=== PATIENT | female | born 1960 | race Caucasian/White ===

== ENCOUNTER 2016-11-24 12:56 | Outpatient (RCR) | payer MEDICAID ==
--- OUTSIDE RECORDS SUMMARY | 2016-11-01 12:36 | XMS REPORT | Continuity of Care Document ---
Author Author [facility] Organization [facility] Address Unknown Phone Unavailable Care Team Providers Care Security Systems Integrator Name Role Phone [facility] [place] PCP [phone] Source Comments Some departments are not documenting in the electronic medical record. If you do not see the information that you expected, contact Release of Information in the Health Information Management department at [phone] for further assistance in locating additional records.[facility] Active Allergies and Adverse Reactions No Known Allergies Current Medications Prescription Sig. Disp. Refills Start End Date Status Date ARIPiprazole (ABILIFY) 15 Take 15 mg by mouth 11/26/19 Active mg tablet daily. 16 atorvastatin (LIPITOR) 40 Take 40 mg by mouth at 12/10/19 Active mg tablet bedtime daily. 16 clonazePAM (KLONOPIN) 1 Take 1 mg by mouth three 12/18/19 Active mg tablet times daily. 16 furosemide (LASIX) 40 mg Take 40 mg by mouth 12/03/19 Active tablet daily. 16 glipiZIDE (GLUCOTROL) 5 Take 5 mg by mouth daily. 12/15/19 Active mg tablet 16 HYDROcodone-ibuprofen Take 1 Tab by mouth every 12/01/19 Active (VICOPROFEN) 7.5-200 mg 6 hours as needed 16 tablet hydrOXYzine (VISTARIL) 25 Take 25 mg by mouth twice 12/03/19 Active mg capsule daily. 16 metFORMIN (GLUCOPHAGE) Take 1,000 mg by mouth 12/03/19 Active 1,000 mg tablet twice daily with meals. 16 LYRICA 100 mg capsule Take 100 mg by mouth 10/29/19 Active three times daily. 16 topiramate (TOPAMAX) 50 Take 50 mg by mouth three 12/03/19 Active mg tablet times daily. 16 traZODone (DESYREL) 50 mg Take 50-100 mg by mouth 12/08/19 Active tablet at bedtime daily. 16 zolpidem (AMBIEN) 5 mg Take 5 mg by mouth at 12/18/19 Active tablet bedtime as needed. 16 vortioxetine 20 mg tab Take 1 Tab by mouth Active daily. sitaGLIPtin (JANUVIA) 100 Take 100 mg by mouth Active mg tab tablet daily. lisinopril (PRINIVIL; Take 5 mg by mouth daily. Active ZESTRIL) 5 mg tablet levothyroxine (SYNTHROID) Take 25 mcg by mouth at Active 25 mcg tablet bedtime daily. QUEtiapine XR(+) Take 1 Tab by mouth daily Active (SEROQUEL XR) 300 mg before dinner. tablet vitamins, multiple tablet Take 1 Tab by mouth Active daily. aspirin EC 325 mg tablet Take 325 mg by mouth Active daily. 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) 2015 Genu valgum, acquired 12/22/2015 Arthralgia of both lower legs [M25.561, M79.605, M25.562] 12/22/2015 Status post total bilateral knee replacement [Z96.653] 12/22/2015 Essential hypertension with goal blood pressure less than 140/90 12/22/2015 Abdominal obesity 12/22/2015 Recurrent major depressive disorder, in full remission (HCC) 12/22/2015 Anxiety 12/22/2015 Hypothyroidism 12/22/2015 Social History Tobacco Use Types Packs/Day Years Used Date Never Smoker Smokeless Tobacco: Never Used Alcohol Use Drinks/Week oz/Week Comments No Last Filed Vital Signs Vital Sign Reading Time Taken Blood Pressure 129/74 01/26/2016 4:37 PM CDT Pulse 79 01/26/2016 4:37 PM CDT Temperature 36.6 C (97.9 F) 01/26/2016 1:43 PM CDT Respiratory Rate - - Height 1.549 m (5' 1") 01/26/2016 4:37 PM CDT Weight 113.399 kg (250 lb) 01/26/2016 4:37 PM CDT Body Mass Index 47.26 01/26/2016 4:37 PM CDT Oxygen Saturation 97% 01/26/2016 1:43 PM CDT Plan of Care Date Type Specialty Providers Description 11/29/2016 Appointment Orthopedic Surgery Cassy Hendricks MD [address] [place] [address] [phone] (Fax) Health Maintenance Due Date Last Done Comments Hepatitis C Screening 1959 Physical (Comprehensive) 1966 Exam Pertussis Vaccine 1970 Tetanus Vaccine 02/24/1976 Dilated Eye Exam 1977 Foot Exam 1977 Microalbumin 1977 Pneumonia Vaccine (Dm) 1977 Cervical Cancer Screening 02/24/1980 Breast Cancer Screening 1999 Colorectal Cancer 2009 Screening Hba1c 06/22/2016 12/22/2015 Influenza Vaccine 04/27/2017 Results from Last 3 Months Not on file
[~2016-11-24 12:56] MED LIST: ARIP15TA PO; ARIP30TA PO; ARPZ30T PO; ASCO500T20 PO; ASP325TEC PO; ATOR40TA PO; ATOR40TA70 PO; BENICAR HCT; CEFD300C3 PO; CLNZ.5T; CLON1TAB3 PO; CYAN10006 PO; DICL100G13 TOP; DULO30CA PO; ESCT10T; FEROSUL PO; FLUO20CA25 PO; FURO40TA4 PO; GABA-488 PO; GLIP5TAB13 PO; HYDR-1231 PO; HYDR-3781 PO; HYDR-87 PO; IBUP-30 PO; IBUP200T48 PO; IRON150C6 PO; LANACANE; LISI1TAB8 PO; LISI20TA PO; LVF500T PO; LVT.025T PO; LVT.05T; LVT.05T PO; METF-380 PO; MTF500TCR; MULT-974 PO; NAPR-243 PO; NITR-65 PO; NIZATIDINE; PGLT30T; PREG100C22 PO; PREG150C PO; PROP20TA23; QTP200T; QUET300T PO; QUET300T5 PO; ROSU10TA12; SENN-1 PO; SITA100T PO; TOPI50TA2 PO; TPR100T; TRAM-21 PO; TRAZ-144 PO; TRM50TRX; VITA1CAP16 PO; VORT10TA PO; ZOLP10TA5 PO; ZOLP5TAB6 PO; [UNRECOGNIZED DRUG - OTHER]; [UNRECOGNIZED DRUG - OTHER]
== END 2016-11-24 14:31 | disposition home or self-care (01) ==
PROVIDERS: ATTEND Nurse Practitioner Adult Health
DX: M25.561 Pain in right knee (principal); M25.562 Pain in left knee

== ENCOUNTER 2016-12-16 19:13 | Emergency (ER) | payer MEDICAID ==
[~2016-12-16] VITALS: Ht 154.9 cm; Wt 111.7 kg
[2016-12-16] MEDS ORDERED: LACTATED RINGERS 1,000 ML IV SCH (19:30)
[2016-12-16] MEDS ORDERED: HYOSCYAMINE 0.125 MG (LEVSIN) TAB PO ONE (19:30)
--- NOTE | 2016-12-16 19:33 | ED GI ---
General Chief Complaint: Abdominal/GI Problems Stated Complaint: ABD PAIN, DIARRHEA, WEIGHTLOSS Source of Information: Patient Exam Limitations: No Limitations History of Present Illness Time Seen By Provider: 19:32 Initial Comments To ER with a four-day history of diffuse abdominal cramping, nausea without any vomiting, watery diarrhea. Timing/Duration: 4-5 Days Severity/Quality: Moderate, Cramping Location: Generalized Abdomen Radiation: No Radiation Activities at Onset: None Associated Symptoms: Denies Symptoms, No Fever/Chills, Nausea/Vomiting Allergies and Home Medications Allergies Coded Allergies: No Known Drug Allergies (Unverified , 04/07/16) Home Medications Aripiprazole 15 Mg Tab, 15 MG PO DAILY, (Reported) DAILY Aspirin 325 Mg Tabec, 325 MG PO BID for 30 Days Prescribed by: MAJOR HERNANDEZ on 03/02/15821 Atorvastatin Calcium 40 Mg Tablet, 40 MG PO HS, (Reported) Cefdinir 300 Mg Capsule, 300 MG PO BID, #14 Ref 0 Prescribed by: DAO ROE on 01/02/16 1032 Clonazepam 1 Mg Tablet, 1 MG PO TID, (Reported) Cyanocobalamin (Vitamin B-12) 1,000 Mcg Tablet, 1,000 MCG PO DAILY, (Reported) Glipizide 5 Mg Tablet, 5 MG PO DAILY, (Reported) Hydrocodone/Ibuprofen 1 Each Tablet, 1 EACH PO Q6H PRN for PAIN, (Reported) Hydroxyzine Pamoate 25 Mg Capsule, 25 MG PO BID, (Reported) Levothyroxine Sodium 25 Mcg Tab, 25 MCG PO DAILY@0630 for 90 Days Prescribed by: MAJOR HERNANDEZ on 03/02/15821 Multivitamin 1 Each Tablet, 1 TAB PO DAILY, (Reported) Pregabalin 100 Mg Capsule, 100 MG PO TID, (Reported) Quetiapine Fumarate 300 Mg Tab.sr.24h, 300 MG PO DAILY @ 1600, (Reported) Sennosides/Docusate Sodium 1 Each Tablet, 2 EACH PO DAILY PRN, (Reported) Sitagliptin Phosphate 100 Mg Tablet, 100 MG PO DAILY, (Reported) Topiramate 50 Mg Tablet, 50 MG PO TID, (Reported) Trazodone Hcl 50 Mg Tablet, 100 MG PO HS, (Reported) TAKE 2 (50 MG) TABLETS AT BEDTIME Vitamin B Complex & Vit C No.3 1 Each Capsule, 1 EACH PO DAILY, (Reported) Vortioxetine Hydrobromide 10 Mg Tablet, 20 MG PO BID, (Reported) Zolpidem Tartrate 5 Mg Tablet, 5 MG PO HS, (Reported) [ferosul] , 1 EACH PO DAILY, (Reported) Review of Systems Constitutional: see HPI, No chills, No fever EENTM: No Symptoms Reported Respiratory: No Symptoms Reported Cardiovascular: No Symptoms Reported Gastrointestinal: See HPI, Abdominal Pain, Denies Constipated, Diarrhea, Nausea , Denies Vomiting Genitourinary: No Symptoms Reported Musculoskeletal: no symptoms reported Skin: no symptoms reported Psychiatric/Neurological: No Symptoms Reported Endocrine: No Symptoms Reported Hematologic/Lymphatic: No Symptoms Reported Past Oqipjpe-Ypbqfl-Tohrag Hx Patient Social History Former Smoker/When Quit: Aug 27, 1989 Recent Foreign Travel: No Contact w/Someone Who Travel: No Recent Hopitalizations: Yes Immunizations Up To Date Tetanus Booster (TDap): More than 5yrs Date of Pneumonia Vaccine: May 27, 2012 Date of Influenza Vaccine: Apr 27, 2014 Surgeries HX Surgeries: Yes (BILAT PARTIAL KNEE) Surgeries: Appendectomy, Hysterectomy, Orthopedic Respiratory Hx Respiratory Disorders: No Respiratory Disorders: COPD Cardiovascular Hx Cardiac Disorders: Yes Cardiac Disorders: High Cholesterol, Hypertension Neurological Hx Neurological Disorders: Yes (lumbar spinal stenosis) Reproductive System Hx Reproductive Disorders: No Sexually Transmitted Disease: No HIV/AIDS: No 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 Disorders: Denies 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 Genitourinary Hx Genitourinary Disorders: Yes (STREP INFECTION IN URINE - 2015) Genitourinary Disorders: Renal Failure, UTI-Chronic Gastrointestinal Hx Gastrointestinal Disorders: No Musculoskeletal Hx Musculoskeletal Disorders: Yes (lumbar spinal stenosis,chronic knee pain) Musculoskeletal Disorders: Arthritis, Chronic Back Pain Endocrine Hx Endocrine Disorders: Yes Endocrine Disorders: Hypothyroidsim, Diabetes, Non-Insulin dep HEENT HX ENT Disorders: No Cancer Hx Cancer: No Psychosocial Hx Psychiatric Problems: Yes Behavioral Health Disorders: Anxiety, Schizophrenia, Depression Integumentary HX Skin/Integumentary Disorder: No Blood Transfusions Hx Blood Disorders: No Family Medical History Family Medial History: Bone cancer SON FH: COPD (chronic obstructive pulmonary disease) 19 MOTHER FH: congestive heart failure 19 MOTHER FH: depression 19 FATHER FH: schizophrenia 19 FATHER Physical Exam Vital Signs Capillary Refill : General Appearance: WD/WN, no apparent distress HEENT: PERRL/EOMI, normal ENT inspection Neck: non-tender, full range of motion Respiratory: no respiratory distress, no accessory muscle use Cardiovascular: regular rate, rhythm, no murmur Gastrointestinal: normal bowel sounds, non tender, soft Extremities: normal range of motion, non-tender, normal inspection Neurologic/Psychiatric: alert, normal mood/affect, oriented x 3 Skin: normal color, warm/dry Progress/Results/Core Measures Results/Orders Lab Results Laboratory Tests Test 12/16/16 19:30 Range/Units My Orders Orders - DARREN IBARRA APRN Ua Culture If Indicated (12/16/16 19:30) Cbc With Automated Diff (12/16/16 19:30) Comprehensive Metabolic Panel (12/16/16 19:30) Saline Lock/Iv-Start (12/16/16 19:30) Lactated Ringers (Lr 1000 Ml Iv Solution (12/16/16 19:30) Hyoscyamine Sl Tablet (Levsin Sl Tablet) (12/16/16 19:30) Departure Impression Impression: Primary Impression: nausea and diarrhea Disposition: 01 HOME, SELF-CARE Condition: Improved Departure-Patient Inst. Decision time for Depature: 19:34 Referrals: JENNIFER ARMSTRONG (PCP) Primary Care Physician [facility] (Family) Primary Care Physician Patient Instructions: Nausea and Vomiting, Adult Add. Discharge Instructions: 1. You may use [id number] Imodium as needed for the diarrhea 2. Continue fluids. Gatorade is a good choice 3. Return to ER for any worsening abdominal pain, fevers or other concerns 4. See your doctor next week All discharge instructions reviewed with patient and/or family. Voiced understanding. DARREN IBARRA APRN Dec 16, 2016 19:33
[2016-12-16 19:37] LABS: BASOPHILS % (AUTO) 0 % (0-10); EOSINOPHILS % (AUTO) 1 % (0-10); LYMPHOCYTES # (AUTO) 1.1 X 10^3 (1.0-4.0); LYMPHOCYTES % (AUTO) 17 % (12-44); MEAN CORPUSCULAR HEMOGLOBIN 30 PG (25-34); MEAN CORPUSCULAR HGB CONC 35 G/DL (32-36); MEAN CORPUSCULAR VOLUME 86 FL (80-99); MONOCYTES # (AUTO) 0.8 X 10^3 (0.0-1.0); MONOCYTES % (AUTO) 13 % (0-12); NEUTROPHILS # (AUTO) 4.5 X 10^3 (1.8-7.8); NEUTROPHILS % (AUTO) 70 % (42-75); PLATELET COUNT 256 10^3/uL (130-400); RED BLOOD COUNT 4.31 10^6/uL (4.35-5.85); RED CELL DISTRIBUTION WIDTH 14.4 % (10.0-14.5); WHITE BLOOD COUNT 6.4 10^3/uL (4.3-11.0)
[2016-12-16 19:58] LABS: ALBUMIN 4.5 G/DL (3.2-4.5); BILIRUBIN,TOTAL 0.5 MG/DL (0.1-1.0); CREATININE SERUM 1.36 MG/DL (0.60-1.30); POTASSIUM 3.5 MMOL/L (3.6-5.0); TOTAL PROTEIN 7.7 G/DL (6.4-8.2)
[2016-12-16 20:30] LABS: BILIRUBIN,URINE NEGATIVE (NEGATIVE); KETONES,URINE NEGATIVE (NEGATIVE); LEUKOCYTE ESTERASE ,URINE 1+ (NEGATIVE); NITRITE,URINE NEGATIVE (NEGATIVE); PH,URINE 5 (5-9); PROTEIN,URINE NEGATIVE (NEGATIVE); UROBILINOGEN,URINE NORMAL (NORMAL)
[2016-12-16 20:40] LABS: HYALINE CASTS, URINE 25-50 /LPF
[2016-12-16 21:24] VITALS: BP 144/89
== END 2016-12-16 21:24 | disposition home or self-care (01) ==
LOC: EDUNIT# 19:13 → ER 19:16
DX: R11.0 Nausea (principal); R19.7 Diarrhea, unspecified; I10 Essential (primary) hypertension; E11.9 Type 2 diabetes mellitus without complications; J44.9 Chronic obstructive pulmonary disease, unspecified; Z79.84 Long term (current) use of oral hypoglycemic drugs; Z79.82 Long term (current) use of aspirin; Z79.899 Other long term (current) drug therapy
CPT/HCPCS: 36415; 51701; 80053; 81000; 85025; 96360

== ENCOUNTER → 2017-02-15 | Outpatient (CLI) | payer MEDICAID | DX: Z12.31 Encounter for screening mammogram for malignant neoplasm of breast (principal) ==

== ENCOUNTER → 2017-03-28 | Outpatient (CLI) | payer MEDICAID ==
--- NOTE | 2017-03-28 11:37 | Diagnostic Imaging Report ---
Transabdominal pelvic ultrasound. INDICATION: UTI. FINDINGS: The urinary bladder appears unremarkable with prevoid volume of 105 mL. Postvoid volume is 20 mL. No focal lesion is identified. No surrounding fluid collection or mass is seen. IMPRESSION: Unremarkable exam. Dictated by: Dictated on workstation # [id number]
--- NOTE | 2017-03-28 11:47 | Diagnostic Imaging Report ---
Renal ultrasound. INDICATION: UTI. Pyuria. Dysuria. FINDINGS: The right kidney is 10.8 and left kidney is 9.7 CM. No hydronephrosis. Bilateral renal cysts are seen up to 2.4 CM in the lateral aspect of the left kidney. Small cyst in the right kidney is also seen measuring 1.3 CM. No significant mass is identified. The urinary bladder appears unremarkable. IMPRESSION: No hydronephrosis. Dictated by: Dictated on workstation # [id number]
== END ==
LOC: RAD 08:57
PROVIDERS: ATTEND Nurse Practitioner Family
DX: N39.0 Urinary tract infection, site not specified (principal); R30.0 Dysuria
CPT/HCPCS: 76770; 76775; 76857

== ENCOUNTER 2017-04-12 10:40 | Outpatient (RCR) | payer MEDICAID | END 2017-04-25 13:26 | disposition home or self-care (01) | PROVIDERS: ATTEND Nurse Practitioner Adult Health | DX: M25.561 Pain in right knee (principal); M25.562 Pain in left knee ==

== ENCOUNTER → 2017-09-07 | Outpatient (CLI) | payer MEDICAID ==
--- NOTE | 2017-09-07 13:08 | Diagnostic Imaging Report ---
EXAM: Ultrasound of the soft tissues, unlisted. INDICATION: Elbow mass FINDINGS: Reportedly, the patient has a palpable abnormality in the right upper quadrant. The ultrasound examination of this area shows a fairly well-circumscribed 4.4 x 4.6 x 1.7 cm, fairly homogeneous, slightly hyperechoic mass. I suspect this is a benign process such as a lipoma. No other abnormality is identified. IMPRESSION: There is a well-circumscribed slightly hyperechoic mass in the area of the patient's palpable abnormality. Most likely this is a lipoma. Clinical followup is recommended. Dictated by: Dictated on workstation # [id number]
== END ==
LOC: RAD 08:48
PROVIDERS: ATTEND Family Medicine
DX: R19.01 Right upper quadrant abdominal swelling, mass and lump (principal); R22.30 Localized swelling, mass and lump, unspecified upper limb
CPT/HCPCS: 76999

== ENCOUNTER 2017-09-18 10:00 | Outpatient (CLI) | payer MEDICAID ==
[~2017-09-18] VITALS: Ht 154.9 cm; Wt 84.4 kg
[~2017-09-18 10:00] MED LIST changes: +BRIM5DRO2 OU; +FLUO40CA12 PO; +FURO-125 PO; +HYDR-3447 PO; +LATA2.5D5 OU; +LEVO50TA6 PO; +LISI2.5T PO; +METF1000 PO; +QUET300T70 PO; +TRIM100T PO
== END 2017-09-18 10:03 ==
LOC: PREOP 10:00
PROVIDERS: ATTEND Surgery
DX: Z01.818 Encounter for other preprocedural examination (principal); R19.4 Change in bowel habit

== ENCOUNTER 2017-09-19 10:46 | Day surgery (SDC) | payer MEDICAID ==
[~2017-09-19] VITALS: Ht 154.9 cm; Wt 84.4 kg
[2017-09-19] MEDS ORDERED: LACTATED RINGERS 1,000 ML IV ONE (11:07)
[2017-09-19] MEDS ORDERED: LACTATED RINGERS 1,000 ML IV STA (11:27)
[2017-09-19 11:30] VITALS: BP 129/70
[2017-09-19 12:50] VITALS: BP 102/55
[2017-09-19] MEDS ORDERED: proPOfol 200 MG/20 ML (DIPRIVAN) VIAL IV ONE (12:52)
[2017-09-19] MEDS ORDERED: MIDAZOLAM 2 MG/2 ML (VERSED) VIAL ONE (12:53)
--- NOTE | 2017-09-19 13:03 | Progress Note-Pre Operative ---
Pre-Operative Progress Note H&P Reviewed The H&P was reviewed, patient examined and no changes noted. Time Seen by Provider: 12:17 Date H&P Reviewed: Sep 19, 2017 Time H&P Reviewed: 12:17 Pre-Operative Diagnosis: Screening colonoscopy, weight loss VANDANA WHITE DO Sep 19, 2017 13:03
[2017-09-19 13:35] VITALS: BP 139/70
--- NOTE | 2017-09-19 13:35 | Progress Note-Post Operative ---
Post-Operative Progess Note Surgeon (s)/Harbor Department Manager (s) Surgeon VANDANA WHITE DO Harbor Department Manager: none Pre-Operative Diagnosis Screening colonoscopy, weight loss Post-Operative Diagnosis Colon Polyp Int Hemorrhoids Procedure & Operative Findings Date of Procedure 09/19/17 Procedure Performed/Findings Colon with hot biopsy Anesthesia Type IV sedation by ONCOLOGY RADIATION PHYSICIAN Estimated Blood Loss Estimated blood loss (mL): scant Specimens/Packing Specimens Removed sigmoid colon polyp VANDANA WHITE DO Sep 19, 2017 13:35
--- NOTE | 2017-09-19 13:42 | Endoscopy Discharge Instruct ---
Endo Procedure/Findings Findings 1.: Polyp 2.: Internal Hemorrhoids Discharge Instructions - Activity: You might feel a little sleepy until tomorrow. This is due to the medicine you received to relax you. Until tomorrow, you should: NOT drive a car, operate machinery or power tools. NOT drink any alcoholic beverages. NOT make any important decisions or sign importortant papers. Do not return to work until tomorrow, unless otherwise instructed. Resume previous activities tomorrow. Diet: Start by taking liquids. If you tolerate liquids, advance to solid food. Make appointment for one week. Notify Physician - If you experience excessive bleeding, unusual abdominal pain, fever, or chest pain, contact your doctor immediately. Follow-Up: - I have received and understand the above instructions and will call my doctor if I have any further questions. Patient Signature Date Nurse Signature Other (Relationship) VANDANA WHITE DO Sep 19, 2017 13:42
[2017-09-19 14:10] VITALS: BP_SYST 131; BP_SYST 139; BP_DIAS 69; BP_DIAS 70
--- NOTE | 2017-09-19 14:40 | OPERATIVE REPORT ---
DATE OF SERVICE: 09/19/2017 PREOPERATIVE DIAGNOSES: 1. Change in bowel habits. 2. Weight loss. 3. Screening colonoscopy. POSTOPERATIVE DIAGNOSES: 1. Colon polyp. 2. Internal hemorrhoids. 3. Change in bowel habits. 4. Weight loss. PROCEDURE: Colonoscopy with hot biopsy. SURGEON: Gilson Diallo DO SUPERVISOR SLEEPING BAG DEPARTMENT: None. ANESTHESIA: IV sedation by NURSE STAFF. SPECIMEN: Sigmoid colon polyp. BLOOD LOSS: Scant. FLUIDS: Per anesthesia. POSTOPERATIVE CONDITION: Stable. INDICATION FOR PROCEDURE: The patient is a 57-year-old female who has had a pretty significant weight loss and has had some change in bowel habits, has not had a colonoscopy recently, needs one for screening. FINDINGS: The patient had a small polyp in the sigmoid colon and she had some small internal hemorrhoids, but otherwise no obvious pathology. PROCEDURE NOTE: After informed consent was obtained, the patient was brought to the endoscopy suite, placed in the bed in the left lateral decubitus position. She was administered IV sedation by the NURSE STAFF, who monitored her vitals the entire time, heart rate, blood pressure and pulse ox. The scope was inserted, pushed all the way to about 150 cm, able to get to the cecum, took a picture of the appendiceal orifice and then able to get into the terminal ileum, took a picture and then slowly withdrew the scope insufflating to look circumferentially looking at the cecum up the ascending colon to the hepatic flexure, then down the transverse colon, the splenic flexure, into the descending colon and then down into the sigmoid. In the sigmoid, I saw a small polyp, took a picture of this and then did a hot biopsy. I was able to get the whole polyp in one bite, then continued down into the rectum, retroflexed the rectal vault, saw some small internal hemorrhoids, took a picture of this and then removed the scope. The patient tolerated the procedure and then she was recovered in the endoscopy suite. Job ID: [id number] DocumentID: [id number] Dictated Date: 09/19/2017 14:02:18 Department Store Door Greeter Date: 09/19/2017 14:39:38 Dictated By: GILSON DIALLO DO
[2017-09-19 14:45] VITALS: BP 151/69
[2017-09-19 15:00] VITALS: BP 151/69
== END 2017-09-19 15:05 | disposition home or self-care (01) ==
LOC: ENDO 10:46
PROVIDERS: ATTEND Surgery
DX: K63.5 Polyp of colon (principal); K64.8 Other hemorrhoids; R19.4 Change in bowel habit; R63.4 Abnormal weight loss; E11.9 Type 2 diabetes mellitus without complications; I10 Essential (primary) hypertension; E78.00 Pure hypercholesterolemia, unspecified; F41.9 Anxiety disorder, unspecified; F32.9 Major depressive disorder, single episode, unspecified; F20.9 Schizophrenia, unspecified; Z79.899 Other long term (current) drug therapy
CPT/HCPCS: 82962

== ENCOUNTER 2017-11-24 22:57 | Emergency (ER) | payer MEDICAID ==
[~2017-11-24] VITALS: Ht 154.9 cm; Wt 79.8 kg
[2017-11-25] MEDS ORDERED: HYDROcodone/APAP 10 MG/325 MG (LORTAB) TAB PO ONE
[2017-11-25 01:55] LABS: BASOPHILS % (AUTO) 0 % (0-10); EOSINOPHILS % (AUTO) 0 % (0-10); HEMATOCRIT 31 % (35-52); LYMPHOCYTES # (AUTO) 1.1 X 10^3 (1.0-4.0); LYMPHOCYTES % (AUTO) 22 % (12-44); MEAN CORPUSCULAR HEMOGLOBIN 32 PG (25-34); MEAN CORPUSCULAR HGB CONC 36 G/DL (32-36); MEAN CORPUSCULAR VOLUME 89 FL (80-99); MEAN PLATELET VOLUME 9.5 FL (7.4-10.4); MONOCYTES # (AUTO) 0.5 X 10^3 (0.0-1.0); MONOCYTES % (AUTO) 9 % (0-12); NEUTROPHILS # (AUTO) 3.5 X 10^3 (1.8-7.8); NEUTROPHILS % (AUTO) 68 % (42-75); PLATELET COUNT 263 10^3/uL (130-400); RED BLOOD COUNT 3.45 10^6/uL (4.35-5.85); RED CELL DISTRIBUTION WIDTH 13.4 % (10.0-14.5); WHITE BLOOD COUNT 5.2 10^3/uL (4.3-11.0)
[2017-11-25 02:15] LABS: ALBUMIN 4.5 GM/DL (3.2-4.5); BILIRUBIN,TOTAL 0.3 MG/DL (0.1-1.0); CALCIUM 9.9 MG/DL (8.5-10.1); CREATININE SERUM 1.89 MG/DL (0.60-1.30); POTASSIUM 3.9 MMOL/L (3.6-5.0); TOTAL PROTEIN 7.3 GM/DL (6.4-8.2)
--- NOTE | 2017-11-25 02:31 | ED General ---
General Chief Complaint: General Problems/Pain Stated Complaint: KNEE PAIN Nursing Triage Note: PT TO ED 9 PER EMS FROM HOME FOR C/O MULTIPLE FALLS X1 WK. PT REPORTS SHE INITIALLY FELL LAST SUNDAY, SAW HER PCP SUNDAY, WAS GIVEN A SHOT ET TOLD "EVEN IF SOMETHING IS BROKEN, THERE'S NOTHING THEY CAN DO." ALSO REPORTS THEY DECREASED HER HYDROCODONE AND HAS BEEN OUT SINCE SUNDAY. STATES HAS HAD MULTIPLE FALLS SINCE. C/O GENERALIZED PAIN SINCE Nursing Sepsis Screen: No Definite Risk Source of Information: Patient Exam Limitations: No Limitations History of Present Illness Date Seen by Provider: Nov 25, 2017 Time Seen by Provider: 00:59 Initial Comments Here with report of multiple falls over the last week. Reports for falls today. Here by EMS. States that she fell forward onto her knees and did not hit her head. Complains of bilateral knee and hip pain. Also notes that she's been out of her hydrocodone for the last 2 days. Has a variety of complaints including diarrhea and states that her blood sugars have been ranging low. Also notes that her blood pressure sometimes ranges low. She was given hydrocodone 10/325 one tab by mouth just after arrival and this seems to be helping and she reports that it is. Denies other injury. Timing/Duration: 1 Week, Changing Over Time, Intermittent Severity: Moderate Associated Systoms: No Chest Pain, No Fever/Chills, No Nausea/Vomiting, No Shortness of Air, No Weakness Allergies and Home Medications Allergies Coded Allergies: No Known Drug Allergies (Verified , 09/19/17) Home Medications Atorvastatin Calcium 40 Mg Tablet, 40 MG PO HS, (Reported) Brimonidine Tartrate 5 Ml Drops, 1 DROP OU BID, (Reported) Clonazepam 1 Mg Tablet, 1 MG PO BID, (Reported) Fluoxetine HCl 40 Mg Capsule, 40 MG PO DAILY, (Reported) Furosemide 20 Mg Tablet, 20 MG PO DAILY, (Reported) Hydrocodone/Ibuprofen 1 Each Tablet, 1 EACH PO Q6H, (Reported) Latanoprost 2.5 Ml Drops, 1 DROP OU HS, (Reported) Levothyroxine Sodium 50 Mcg Tablet, 50 MCG PO DAILY, (Reported) Lisinopril 2.5 Mg Tablet, 2.5 MG PO DAILY, (Reported) Metformin HCl 1,000 Mg Tablet, 1,000 MG PO BID, (Reported) Quetiapine Fumarate 300 Mg Tab.er.24h, 300 MG PO HS, (Reported) Trimethoprim 100 Mg Tablet, 100 MG PO DAILY, (Reported) Patient Home Medication List Home Medication List Reviewed: Yes Constitutional: see HPI, No chills, No fever EENTM: no symptoms reported Respiratory: No short of breath, No wheezing Cardiovascular: No chest pain, No edema Gastrointestinal: No abdominal pain, diarrhea, nausea, No vomiting Genitourinary: no symptoms reported Musculoskeletal: joint pain, muscle pain Skin: no symptoms reported Psychiatric/Neurological: Denies Headache, Weakness Hematologic/Lymphatic: No Symptoms Reported Past Upphdhk-Mkxlsi-Vbyavb Hx Patient Social History Alcohol Use: Denies Use Recreational Drug Use: No Smoking Status: Never a Smoker 2nd Hand Smoke Exposure: No Recent Foreign Travel: No Contact w/Someone Who Travel: No Recent Infectious Disease Expo: No Recent Hopitalizations: No Physical Abuse: No Sexual Abuse: No Mistreated: No Fear: No Immunizations Up To Date Tetanus Booster (TDap): More than 5yrs Date of Pneumonia Vaccine: May 27, 2012 Date of Influenza Vaccine: Apr 27, 2017 Seasonal Allergies Seasonal Allergies: No Surgeries History of Surgeries: Yes (BILAT PARTIAL KNEE, hip fx) Surgeries: Appendectomy, Bladder Surgery, Hysterectomy, Orthopedic Respiratory History of Respiratory Disorde: No Respiratory Disorders: COPD Cardiovascular History of Cardiac Disorders: Yes Cardiac Disorders: High Cholesterol, Hypertension Neurological History of Neurological Disord: Yes Neurological Disorders: Neuropathy Reproductive System Hx Reproductive Disorders: No Sexually Transmitted Disease: No HIV/AIDS: No 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 Disorders: Denies 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 Genitourinary Genitourinary Disorders: Renal Failure, UTI-Chronic Gastrointestinal History of Gastrointestinal Di: Yes Gastrointestinal Disorders: Chronic Diarrhea Musculoskeletal History of Musculoskeletal Dis: Yes (lumbar spinal stenosis,chronic knee pain, ) Musculoskeletal Disorders: Arthritis, Chronic Back Pain, Fractures Endocrine History of Endocrine Disorders: Yes Endocrine Disorders: Hypothyroidsim, Diabetes, Non-Insulin dep Cancer History of Cancer: No Psychosocial History of Psychiatric Problem: Yes Behavioral Health Disorders: Anxiety, Schizophrenia, Depression Suicide Risk Score: 0 Integumentary History of Skin or Integumenta: No Blood Transfusions History of Blood Disorders: Yes (anemia) Reviewed Nursing Assessment Reviewed/Agree w Nursing PMH: Yes Family Medical History Family Medial History: Bone cancer SON FH: COPD (chronic obstructive pulmonary disease) 19 MOTHER FH: congestive heart failure 19 MOTHER FH: depression 19 FATHER FH: schizophrenia 19 FATHER Physical Exam Vital Signs Vital Signs - First Documented 11/24/17 22:58 Temp 96.8 Pulse 82 Resp 20 B/P (MAP) 115/75 (88) Pulse Ox 100 O2 Delivery Room Air Capillary Refill : Less Than 3 Seconds General Appearance: No Apparent Distress, WD/WN HEENT: PERRL/EOMI, Pharynx Normal Neck: Non Tender, Supple Respiratory: Lungs Clear, Normal Breath Sounds Cardiovascular: Regular Rate, Rhythm, No Murmur Gastrointestinal: Non Tender, Soft Back: Normal Inspection, No CVA Tenderness, No Vertebral Tenderness, Other ( low back pain and bilateral but no deformity, bruising, abrasions or other indications of injury.) Extremity: Normal Range of Motion, Other (tender over both knees anteriorly but no deformity, bruising or step-off.) Neurologic/Psychiatric: Alert, Oriented x3 Skin: Normal Color, Warm/Dry, No Rash Progress/Results/Core Measures Suspected Sepsis Recent Fever Within 48 Hours: No Infection Criteria Present: None New/Unexplained Altered Menta: No Sepsis Screen: No Definite Risk Sepsis Diagnosis: SIRS Temperature:96.8 Pulse: 82 Respiratory Rate: 20 Laboratory Tests 11/25/17 01:45: White Blood Count 5.2 Blood Pressure 115 /75 Mean: 88 Laboratory Tests 11/25/17 01:45: Creatinine 1.89H, Platelet Count 263, Total Bilirubin 0.3 Results/Orders Lab Results Laboratory Tests Test 11/25/17 01:45 11/25/17 01:48 Range/Units White Blood Count 5.2 4.3-11.0 10^3/uL Red Blood Count 3.45 L 4.35-5.85 10^6/uL Hemoglobin 11.0 L 11.5-16.0 G/DL Hematocrit 31 L 35-52 % Mean Corpuscular Volume 89 80-99 FL Mean Corpuscular Hemoglobin 32 25-34 PG Mean Corpuscular Hemoglobin Concent 36 32-36 G/DL Red Cell Distribution Width 13.4 10.0-14.5 % Platelet Count 263 130-400 10^3/uL Mean Platelet Volume 9.5 7.4-10.4 FL Neutrophils (%) (Auto) 68 42-75 % Lymphocytes (%) (Auto) 22 12-44 % Monocytes (%) (Auto) 9 0-12 % Eosinophils (%) (Auto) 0 0-10 % Basophils (%) (Auto) 0 0-10 % Neutrophils # (Auto) 3.5 1.8-7.8 X 10^3 Lymphocytes # (Auto) 1.1 1.0-4.0 X 10^3 Monocytes # (Auto) 0.5 0.0-1.0 X 10^3 Eosinophils # (Auto) 0.0 0.0-0.3 10^3/uL Basophils # (Auto) 0.0 0.0-0.1 10^3/uL Sodium Level 136 135-145 MMOL/L Potassium Level 3.9 3.6-5.0 MMOL/L Chloride Level 103 98-107 MMOL/L Carbon Dioxide Level 17 L 21-32 MMOL/L Anion Gap 16 H 5-14 MMOL/L Blood Urea Nitrogen 28 H 7-18 MG/DL Creatinine 1.89 H 0.60-1.30 MG/DL Estimat Glomerular Filtration Rate 27 BUN/Creatinine Ratio 15 Glucose Level 93 70-105 MG/DL Calcium Level 9.9 8.5-10.1 MG/DL Total Bilirubin 0.3 0.1-1.0 MG/DL Aspartate Amino Transf (AST/SGOT) 12 5-34 U/L Alanine Aminotransferase (ALT/SGPT) 9 0-55 U/L Alkaline Phosphatase 89 40-136 U/L Total Protein 7.3 6.4-8.2 GM/DL Albumin 4.5 3.2-4.5 GM/DL Glucometer 93 70-110 MG/DL My Orders Orders - CASTRO PORTILLO MD Hydrocodone/Apap 10/325 Tablet (Lortab 1 (11/25/17 00:00) Knee, 3 Views, Bilateral (11/25/17 00:01) Pelvis/Diego Hips 2 Views (11/25/17 00:01) Cbc With Automated Diff (11/25/17 01:34) Comprehensive Metabolic Panel (11/25/17 01:34) Accucheck Stat ONCE (11/25/17 01:35) Medications Given in ED Current Medications Medications Dose Ordered Sig/Salvador Route Start Time Stop Time Status Last Admin Dose Admin Acetaminophen/ Hydrocodone Bitart 1 ea ONCE ONCE PO 11/25/17 00:00 11/25/17 00:01 DC 11/24/17 23:52 1 EA Vital Signs/I&O Vital Sign - Last 12Hours 11/24/17 22:58 Temp 96.8 Pulse 82 Resp 20 B/P (MAP) 115/75 (88) Pulse Ox 100 O2 Delivery Room Air Capillary Refill : Less Than 3 Seconds Blood Pressure Mean: 88 Point of Care Testing Finger Stick Blood Glucose: 93 Progress Note : Progress Note Seen and evaluated. Bilateral knees, hips and pelvis ordered. Hydrocodone 10/ 325 one tab by mouth given. We did check some basic labs. I did note mild elevation in the serum creatinine which seems to be chronic and is in her range. Blood sugar okay at this point. She is instructed to follow-up with her doctor for further evaluation and to discuss her chronic renal insufficiency and her medications. Go pack of hydrocodone given. She is significant refills on her prescriptions for her pain medicine on Sunday. Discharged home with return precautions. Patient verbalize understanding instructions and agreement with plan. Departure Impression Impression: Primary Impression: Bilateral knee pain Qualified Codes: M25.561 - Pain in right knee; M25.562 - Pain in left knee Additional Impressions: Bilateral hip pain Low back pain Qualified Codes: M54.5 - Low back pain Chronic renal insufficiency Qualified Codes: N18.9 - Chronic kidney disease, unspecified Disposition: HOME, SELF-CARE Condition: Improved Departure-Patient Inst. Decision time for Depature: 02:36 Referrals: NAI JAIME MD (PCP/Family) Primary Care Physician Patient Instructions: Chronic Kidney Disease (DC), Chronic Knee Pain (DC), Hip Pain (DC), Low Back Pain (DC) Add. Discharge Instructions: All discharge instructions reviewed with patient and/or family. Voiced understanding. Continue home medications as previously prescribed. Make appointment with your doctor this week for recheck and further evaluation. Return for worse pain, fever, vomiting, weakness, breathing problems or other concerns as needed. Copy Copies To 1: NAI JAIME MD, TIMOTHY D MD Nov 25, 2017 02:31
[2017-11-25] MEDS ORDERED: RX-HYDROCODONE/APAP 5/325 MG #4 TAB PK PO PRN (02:45)
[2017-11-25 02:46] VITALS: BP 141/71
--- NOTE | 2017-11-25 06:33 | Diagnostic Imaging Report ---
CLINICAL INDICATION: Patient recent falls, generalized pain and weakness in both hips. EXAM: X-ray of the pelvis AP view and x-ray of both hips, AP and frog-leg views. COMPARISON: None. FINDINGS: There is no evidence of acute fracture or dislocation. There is a short intramedullary phoebe within the healed right proximal femoral region. There are no gross hardware complications. There is mild spurring of the symphysis pubis region. There are spurs involving the lower lumbar spine. Phleboliths are seen in the pelvis. IMPRESSION: 1: There is no gross evidence of acute fracture or dislocation. Dictated by: Dictated on workstation # [id number]
--- NOTE | 2017-11-25 07:31 | Diagnostic Imaging Report ---
Clinical indication: Status post fall. Exam: X-ray of both knees, multiple views. Comparison: X-ray of both knees dated 04/01/2014. Findings: Again seen, medial unicompartmental arthroplasty involving the right knee. There is no interval osteolysis or hardware complication seen. There is no fracture or dislocation involving the right knee. There is progression of hypertrophic spurring involving the lateral compartment and patellofemoral compartment with severely hypertrophic spurs seen. There is no knee effusion. The left knee shows significant progression of severe patellofemoral compartment and lateral compartment spurring. There is no interval fracture or dislocation. Again seen, medial unicompartment arthroplasty with no gross interval complication. There is no left knee effusion. Impression: 1: X-ray of both knees show no acute fracture or dislocation. There is no knee effusion. 2: There is interval progression of severely hypertrophic spurs involving the patellofemoral and lateral compartments of both knees compared to the prior study. 3: Bilateral medial unicompartmental arthroplasties are seen with no interval complications. Dictated by: Dictated on workstation # [id number]
== END 2017-11-25 02:46 | disposition home or self-care (01) ==
LOC: EDUNIT# 22:57 → ER 22:57
DX: M25.562 Pain in left knee (principal); M25.561 Pain in right knee; M25.551 Pain in right hip; M25.552 Pain in left hip; M54.5 Low back pain; E11.22 Type 2 diabetes mellitus with diabetic chronic kidney disease; E11.40 Type 2 diabetes mellitus with diabetic neuropathy, unspecified; I12.9 Hypertensive chronic kidney disease with stage 1 through stage 4 chronic kidney disease, or unspecified chronic kidney disease; J44.9 Chronic obstructive pulmonary disease, unspecified; N18.9 Chronic kidney disease, unspecified; R29.6 Repeated falls; F41.9 Anxiety disorder, unspecified; F32.9 Major depressive disorder, single episode, unspecified; F20.9 Schizophrenia, unspecified; D64.9 Anemia, unspecified; E78.00 Pure hypercholesterolemia, unspecified; Z90.710 Acquired absence of both cervix and uterus; Z90.49 Acquired absence of other specified parts of digestive tract; Z79.84 Long term (current) use of oral hypoglycemic drugs
CPT/HCPCS: 36415; 73521; 80053; 82962; 85025

== ENCOUNTER 2018-01-16 19:41 | Emergency (ER) | payer MEDICAID ==
[~2018-01-16] VITALS: Ht 154.9 cm; Wt 76.2 kg
[~2018-01-16 19:41] MED LIST changes: -METF1000 PO; +METF10002 PO; -SENN-1 PO; +SENN-145 PO
[2018-01-16] MEDS ORDERED: HYDR-3812 (19:53)
[2018-01-16] MEDS ORDERED: TRAZ150T72 (19:53)
[2018-01-16] MEDS ORDERED: ESTR42.511 (19:53)
[2018-01-16] MEDS ORDERED: LEVO25TA5 (19:53)
[2018-01-16] MEDS ORDERED: FLUO40CA (19:53)
--- NOTE | 2018-01-16 19:56 | ED Cardiac General ---
History of Present Illness General Chief Complaint: Chest Pain Stated Complaint: CHEST PRESSURE Nursing Triage Note: PT BROUGHT IN BY EMS WITH COMPLAINT OF CHEST PRESSURE, DIZZINESS, HEADACHE X3HRS. EMS GAVE PT 1 NITRO, 324 MG ASPIRIN, AND 1 INCH OF NITRO PASTE. Source: patient (DIFFICULT HISTORIAN AND RAMBLES ON NON-STOP AT LENGTH AND DIFFICULT TO KEEP ON SUBJECT), EMS History of Present Illness Date Seen by Provider: January 16, 2018 Time Seen by Provider: 19:37 Initial Comments PT ARRIVES VIA EMS FROM HOME-LIVES AT [facility] EMS STATES THEY WERE CALLED TO SCENE FOR PT C/O CHEST PAIN EMS GAVE ASPIRIN, NTG SL X 1 AND 1" NITROPASTE PT WITH MULTITUDE OF COMPLAINTS PT'S FIRST COMPLAINT IS ABDOMINAL PAIN--STATES UPPER ABDOMEN AND LOWER ABDOMEN HAVE BEEN HURTING--CANNOT STATE HOW LONG ONLY ON DIRECT QUESTIONING WHETHER HER CHEST HURTS, DOES SHE STATE THAT HER CHEST HURTS, AND ONLY ON DIRECT QUESTIONING SHE STATES WHERE PAIN IS ( POINTS TO CENTER OF CHEST) AND ONLY ON DIRECT QUESTIONING DOES SHE REPORT THAT IT GOES INTO HER BACK PT STATES PAIN WAS 7/10 AND IS 5/10 NOW PT IS UNABLE TO STATE IF ANYTHING WORSENS OR IMPROVES PAIN PT'S SECOND COMPLAINT IS HEADACHE, IS CHRONIC PROBLEM AND IS WORSE SINCE NITROPASTE WAS PLACED PT ALSO C/O DIZZINESS, BUT IS AN ONGOING PROBLEM, WORSE FOR THE LAST SEVERAL WEEKS C/O NAUSEA, NO VOMITING. HAS CHRONIC DIARRHEA ONLY C/O SHORTNESS OF BREATH ON DIRECT QUESTIONING SYMPTOMS BEGAN OVER 3 HOURS AGO WHILE LAYING DOWN AND TRYING TO SLEEP PT STATES "I CRIED ALOT ALL AFTERNOON" BUT STATES SHE DOESN'T KNOW WHY. 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 SEE OLD CHARTS FOR DETAILS PCP: DR. JAIME PSYCH: DR. GARBER NTG SL MANAGER BUSINESS MANAGEMENT: Yes ASA po MANAGER BUSINESS MANAGEMENT: Yes Allergies and Home Medications Allergies Coded Allergies: No Known Drug Allergies (Verified , 1/24/18) Home Medications Brimonidine Tartrate 5 Ml Drops, 1 DROP OU BID, (Reported) Clonazepam 1 Mg Tablet, 1 MG PO BID, (Reported) Fluoxetine HCl 40 Mg Capsule, 40 MG PO DAILY, (Reported) Lisinopril 2.5 Mg Tablet, 2.5 MG PO DAILY, (Reported) Metformin HCl 1,000 Mg Tablet, 1,000 MG PO BID, (Reported) Trimethoprim 100 Mg Tablet, 100 MG PO DAILY, (Reported) Patient Home Medication List Home Medication List Reviewed: Yes Review of Systems Constitutional: see HPI, dizziness EENTM: No Symptoms Reported Respiratory: See HPI, Shortness of Air Cardiovascular: See HPI, Chest Pain, Lightheadedness; Denies Syncope Gastrointestinal: Abdominal Pain, Diarrhea, Nausea Genitourinary: No Symptoms Reported (BUT HAS CHRONIC UTI'S) Musculoskeletal: joint pain, other (CHRONIC KNEE PAIN--STATES SHE IS SUPPOSED TO HAVE BILATERAL REVISIONS OF PARTIAL KNEE REPLACEMENTS AT , BUT HAS NOT SCHEDULED ) Psychiatric/Neurological: See HPI, Anxiety, Depressed, Emotional Problems, Headache; Denies Numbness, Denies Paresthesia, Denies Seizure Endocrine: No Symptoms Reported Hematologic/Lymphatic: No Symptoms Reported Past Edagzyf-Lscyfh-Udkfpt Hx Patient Social History Alcohol Use: Denies Use Recreational Drug Use: No Smoking Status: Never a Smoker 2nd Hand Smoke Exposure: No Recent Foreign Travel: No Contact w/Someone Who Travel: No Recent Infectious Disease Expo: No Recent Hopitalizations: No Immunizations Up To Date Tetanus Booster (TDap): More than 5yrs Date of Pneumonia Vaccine: May 27, 2012 Date of Influenza Vaccine: Apr 27, 2017 Seasonal Allergies Seasonal Allergies: No Past Medical History Surgeries: Yes (BILATERAL PARTIAL KNEE REPLACEMENTS; KNEE SCOPES; RIGHT HIP FX/ ORIF; HYST/OVARIES INTACT; COLONSOCOPY/POLYPECTOMY 08/2017) Appendectomy, Bladder Surgery, Hysterectomy, Orthopedic Respiratory: Yes COPD Cardiac: Yes High Cholesterol, Hypertension Neurological: Yes Neuropathy Reproductive Disorders: No 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 Disorders: Denies SVP OPERATIONS History: Hysterectomy, Menopausal Sexually Transmitted Disease: No HIV/AIDS: No Genitourinary: Yes Renal Failure, UTI-Chronic Gastrointestinal: Yes (S/P CHOLECYSTECTOMY) Chronic Diarrhea, Polyps, Gall Bladder Disease Musculoskeletal: Yes (lumbar spinal stenosis,chronic knee pain, RIGHT HIP FX/ ORIF; CHRONIC GENERALIZED PAIN COMPLAINTS--CHRONIC NARCOTIC USE) Degenerate Disk Disease, Arthritis, Chronic Back Pain, Fractures Endocrine: Yes Hypothyroidsim, Diabetes, Non-Insulin dep HEENT: Yes Glaucoma Cancer: No Psychosocial: Yes (EXTENSIVE PSYCH ISSUES) Anxiety, Schizophrenia, Depression Integumentary: No Blood Disorders: Yes (ANEMIA) Family Medical History Bone cancer SON FH: COPD (chronic obstructive pulmonary disease) 19 MOTHER FH: congestive heart failure 19 MOTHER FH: depression 19 FATHER FH: schizophrenia 19 FATHER Physical Exam Vital Signs Vital Signs - First Documented 01/16/18 19:41 Temp 96.3 Pulse 76 Resp 18 B/P (MAP) 152/82 (105) Pulse Ox 97 O2 Delivery Room Air Capillary Refill : Less Than 3 Seconds General Appearance: Obese, Other (ANXIOUS, KEEPS EYES CLOSED, HOLDS BODY STIFF , HYPERVENTILATING AND "WHIMPERING" BUT NOT ACTUALLY CRYING, RAMBLES ON AND TALKS NON-STOP AT LENGTH--DIFFICULT TO KEEP ON SUBJECT. ) HEENT: PERRL/EOMI Neck: Full Range of Motion, Normal Inspection, Non Tender, Supple; No Carotid Bruit, No JVD Respiratory: Normal Breath Sounds, No Accessory Muscle Use, No Respiratory Distress, Other (DIFFUSE CHEST WALL TENDERNESS, ESPECIALLY MID CHEST--PALPATION REPRODUCES PAIN) Cardiovascular: Regular Rate, Rhythm, No Edema, No JVD, No Murmur, Normal Peripheral Pulses Gastrointestinal: Normal Bowel Sounds, No Organomegaly, No Pulsatile Mass, Soft , Tenderness (MILD EPIGASTRIC AND SUPRAPUBIC TENDERNESS) Extremity: Normal Capillary Refill, Normal Inspection, Normal Range of Motion, Non Tender, No Calf Tenderness, No Pedal Edema Neurologic/Psychiatric: Alert, Oriented x3, No Motor/Sensory Deficits, financial accountant II- XII Norm as Tested, Other ( ABOVE) Skin: Normal Color, Warm/Dry Progress/Results/Core Measures Results/Orders Lab Results Laboratory Tests Test 01/16/18 19:44 01/16/18 20:32 Range/Units White Blood Count 4.0 L 4.3-11.0 10^3/uL Red Blood Count 3.13 L 4.35-5.85 10^6/uL Hemoglobin 10.0 L 11.5-16.0 G/DL Hematocrit 29 L 35-52 % Mean Corpuscular Volume 91 80-99 FL Mean Corpuscular Hemoglobin 32 25-34 PG Mean Corpuscular Hemoglobin Concent 35 32-36 G/DL Red Cell Distribution Width 13.5 10.0-14.5 % Platelet Count 225 130-400 10^3/uL Mean Platelet Volume 9.8 7.4-10.4 FL Neutrophils (%) (Auto) 66 42-75 % Lymphocytes (%) (Auto) 23 12-44 % Monocytes (%) (Auto) 10 0-12 % Eosinophils (%) (Auto) 1 0-10 % Basophils (%) (Auto) 0 0-10 % Neutrophils # (Auto) 2.7 1.8-7.8 X 10^3 Lymphocytes # (Auto) 0.9 L 1.0-4.0 X 10^3 Monocytes # (Auto) 0.4 0.0-1.0 X 10^3 Eosinophils # (Auto) 0.0 0.0-0.3 10^3/uL Basophils # (Auto) 0.0 0.0-0.1 10^3/uL Prothrombin Time 13.6 12.2-14.7 SEC INR Comment 1.0 0.8-1.4 Activated Partial Thromboplast Time 37 H 24-35 SEC Sodium Level 136 135-145 MMOL/L Potassium Level 4.0 3.6-5.0 MMOL/L Chloride Level 107 98-107 MMOL/L Carbon Dioxide Level 18 L 21-32 MMOL/L Anion Gap 11 5-14 MMOL/L Blood Urea Nitrogen 21 H 7-18 MG/DL Creatinine 1.12 0.60-1.30 MG/DL Estimat Glomerular Filtration Rate 50 BUN/Creatinine Ratio 19 Glucose Level 90 70-105 MG/DL Calcium Level 9.1 8.5-10.1 MG/DL Magnesium Level 1.8 1.8-2.4 MG/DL Total Bilirubin 0.4 0.1-1.0 MG/DL Aspartate Amino Transf (AST/SGOT) 13 5-34 U/L Alanine Aminotransferase (ALT/SGPT) 11 0-55 U/L Alkaline Phosphatase 65 40-136 U/L Total Creatine Kinase 64 29-168 U/L Creatine Kinase MB 1.8 <6.6 NG/ML Troponin I < 0.30 <0.30 NG/ML B-Type Natriuretic Peptide 38.4 <100.0 PG/ML Total Protein 6.2 L 6.4-8.2 GM/DL Albumin 4.0 3.2-4.5 GM/DL Amylase Level 46 25-125 U/L Lipase 18 8-78 U/L TSH Gilbert Testing 2.86 0.35-4.94 UIU/ML Serum Alcohol < 10 <10 MG/DL Urine Color YELLOW Urine Clarity CLEAR Urine pH 7 5-9 Urine Specific [place] 1.005 L 1.016-1.022 Urine Protein NEGATIVE NEGATIVE Urine Glucose (UA) NEGATIVE NEGATIVE Urine Ketones NEGATIVE NEGATIVE Urine Nitrite NEGATIVE NEGATIVE Urine Bilirubin NEGATIVE NEGATIVE Urine Urobilinogen NORMAL NORMAL MG/DL Urine Leukocyte Esterase NEGATIVE NEGATIVE Urine RBC (Auto) NEGATIVE NEGATIVE Urine RBC NONE /HPF Urine WBC RARE /HPF Urine Squamous Epithelial Cells 2-5 /HPF Urine Crystals NONE /LPF Urine Bacteria NONE /HPF Urine Casts NONE /LPF Urine Mucus NEGATIVE /LPF Urine Culture Indicated NO Urine Opiates Screen POSITIVE H NEGATIVE Urine Oxycodone Screen NEGATIVE NEGATIVE Urine Methadone Screen NEGATIVE NEGATIVE Urine Propoxyphene Screen NEGATIVE NEGATIVE Urine Barbiturates Screen NEGATIVE NEGATIVE Ur Tricyclic Antidepressants Screen POSITIVE H NEGATIVE Urine Phencyclidine Screen NEGATIVE NEGATIVE Urine Amphetamines Screen NEGATIVE NEGATIVE Urine Methamphetamines Screen NEGATIVE NEGATIVE Urine Benzodiazepines Screen NEGATIVE NEGATIVE Urine Cocaine Screen NEGATIVE NEGATIVE Urine Cannabinoids Screen NEGATIVE NEGATIVE My Orders Orders - TONIKVNG K DO Lorazepam Injection (Ativan Injection) (01/16/18 20:00) Amylase (01/16/18 19:50) Cbc With Automated Diff (01/16/18 19:50) Comprehensive Metabolic Panel (01/16/18 19:50) Creatine Kinase (01/16/18 19:50) Creatine Kinase Mb (01/16/18 19:50) Lipase (01/16/18 19:50) Partial Thromboplastin Time (01/16/18 19:50) Protime With Inr (01/16/18 19:50) Troponin I (01/16/18 19:50) Chest 1 View, Ap/Pa Only (01/16/18 19:50) O2 (01/16/18 19:50) Ekg Tracing (01/16/18 19:50) Aspirin Chewable Tablet (Baby Aspirin Ch (01/16/18 20:00) BNP (01/16/18 19:50) Monitor-Rhythm Ecg Trace Only (01/16/18 19:50) Alcohol (01/16/18 19:50) Drug Screen Stat (Urine) (01/16/18 19:50) Magnesium (01/16/18 19:50) Thyroid Analyzer (01/16/18 19:50) Ua Culture If Indicated (01/16/18 19:50) Ketorolac Injection (Toradol Injection) (01/16/18 20:00) Ct Chest/Abdomen/Pelvis Wo (01/16/18 20:50) Medications Given in ED Current Medications Medications Dose Ordered Sig/Salvador Route Start Time Stop Time Status Last Admin Dose Admin Aspirin 324 mg ONCE ONCE PO 01/16/18 20:00 01/16/18 20:01 DC 01/16/18 19:58 324 MG Ketorolac Tromethamine 30 mg ONCE ONCE IVP 01/16/18 20:00 01/16/18 20:01 DC 01/16/18 19:58 30 MG Lorazepam 2 mg ONCE ONCE IVP 01/16/18 20:00 01/16/18 20:01 DC 01/16/18 19:58 2 MG Vital Signs/I&O 01/16/18 19:41 Temp 96.3 Pulse 76 Resp 18 B/P (MAP) 152/82 (105) Pulse Ox 97 O2 Delivery Room Air Blood Pressure Mean: 105 Progress Progress Note : Progress Note PT GIVEN ATIVAN AND TORADOL WITH COMPLETE RESOLUTION OF SYMPTOMS. PT NOW IS SMILING, MAKES EYE CONTACT AND IS TALKING AND TEXTING/PLAYING ON PHONE THROUGHOUT ENTIRE ER STAY PT RAMBLES ON NON-STOP THROUGHOUT ER STAY AND IS NOW FOCUSED ON HER KNEES AND STATES SHE IS SUPPOSED TO HAVE SURGERY AT BUT SHE NEEDS CLEARANCE BY MEDICAL TYPIST( BUT SHE HAS NOT MADE AN APPOINTMENT WITH ROBYN OR DR. ADAMES OR ANY MEDICAL TYPIST ) AND THAT SHE STATES THIS HAS BEEN GOING ON FOR A COUPLE OF MONTHS AND NOW SHE THINKS IT IS ALL ANXIETY AND THAT SHE DOESN'T HAVE ANYTHING WRONG WITH HER HEART AT ALL. "I KNOW IT'S ALL ANXIETY" ADVISED HER TO FOLLOW THROUGH WITH MAKING APPOINTMENTS FOR BOTH ROBYN AND DR. ADAMES FOR FURTHER CARE. PT WANTS TO GO HOME. STATES SHE FEELS FINE NOW. PT STATES SHE HAS AN APPOINTMENT WITH HER MENTAL HEALTH PROVIDER AND WITH DR. JAIME NEXT WEEK FOR ROUTINE FOLLOW UP APPOINTMENTS Initial ECG Impression Date: January 16, 2018 Initial ECG Impression Time: 19:45 Initial ECG Rate: 77 Initial ECG Rhythm: Normal Sinus Initial ECG Impression: Normal Diagnostic Imaging Comments CXR-NO ACUTE PROCESS, PER RADIOLOGIST REPORT @ 2032 CT CHEST/ABDOMEN/PELVIS--NO ACUTE PROCESS, PER RADIOLOGIST REPORT @ 2129 Reviewed: Reviewed by Me Departure Impression Primary Impression: Chest pain Additional Impressions: Chest wall pain Anxiety Disposition: HOME, SELF-CARE Condition: Improved Departure-Patient Inst. Referrals: NAI JAIME MD (PCP/Family) Primary Care Physician Patient Instructions: Anxiety, Adult (DC), Chest Pain (DC), Chest Pain That Is Not Caused by the Heart (DC) Add. Discharge Instructions: KEEP YOUR APPOINTMENTS NEXT WEEK WITH DR. JAIME AND MENTAL HEALTH MAKE APPOINTMENT WITH MEDICAL TYPIST AND [facility] TAKE YOUR MEDICATIONS PRESCRIBED All discharge instructions reviewed with patient and/or family. Voiced understanding. KVNG MUÑOZ DO January 16, 2018 19:56
[2018-01-16 19:59] LABS: BASOPHILS % (AUTO) 0 % (0-10); EOSINOPHILS % (AUTO) 1 % (0-10); HEMATOCRIT 29 % (35-52); LYMPHOCYTES # (AUTO) 0.9 X 10^3 (1.0-4.0); LYMPHOCYTES % (AUTO) 23 % (12-44); MEAN CORPUSCULAR HEMOGLOBIN 32 PG (25-34); MEAN CORPUSCULAR HGB CONC 35 G/DL (32-36); MEAN CORPUSCULAR VOLUME 91 FL (80-99); MEAN PLATELET VOLUME 9.8 FL (7.4-10.4); MONOCYTES # (AUTO) 0.4 X 10^3 (0.0-1.0); MONOCYTES % (AUTO) 10 % (0-12); NEUTROPHILS # (AUTO) 2.7 X 10^3 (1.8-7.8); NEUTROPHILS % (AUTO) 66 % (42-75); PLATELET COUNT 225 10^3/uL (130-400); RED BLOOD COUNT 3.13 10^6/uL (4.35-5.85); RED CELL DISTRIBUTION WIDTH 13.5 % (10.0-14.5)
[2018-01-16] MEDS ORDERED: KETOROLAC 30 MG/ML VIAL IVP ONE (20:00)
[2018-01-16] MEDS ORDERED: ASPIRIN 81 MG CHEW (CHILDREN'S ASA) PO ONE (20:00)
[2018-01-16] MEDS ORDERED: LORazepam INJ 2 MG/ML (ATIVAN) VIAL IVP ONE (20:00)
[2018-01-16 20:04] LABS: PROTHROMBIN TIME PATIENT 13.6 SEC (12.2-14.7)
[2018-01-16 20:13] LABS: ALANINE AMINOTRANSFERASE 11 U/L (0-55); ALKALINE PHOSPHATASE 65 U/L (40-136); AMYLASE 46 U/L (25-125); BILIRUBIN,TOTAL 0.4 MG/DL (0.1-1.0); BUN/CREATININE RATIO 19; CALCIUM 9.1 MG/DL (8.5-10.1); CARBON DIOXIDE 18 MMOL/L (21-32); CHLORIDE 107 MMOL/L (98-107); CREATINE KINASE 64 U/L (29-168); CREATININE SERUM 1.12 MG/DL (0.60-1.30); GFR ESTIMATED 50; GLUCOSE 90 MG/DL (70-105); LIPASE 18 U/L (8-78); MAGNESIUM 1.8 MG/DL (1.8-2.4); SODIUM 136 MMOL/L (135-145); TOTAL PROTEIN 6.2 GM/DL (6.4-8.2)
--- NOTE | 2018-01-16 20:28 | Diagnostic Imaging Report ---
INDICATION: Chest pain and tightness COMPARISON: 12/24/2017 FINDINGS: Single view of the chest demonstrates clear lungs bilaterally. The heart is normal. There is no pneumothorax. The osseous structures normal. IMPRESSION: Negative chest Dictated by: Dictated on workstation # [id number]
[2018-01-16 20:33] LABS: CREATINE KINASE MB 1.8 NG/ML (<6.6); TSH (THYROID ANALYZER) 2.86 UIU/ML (0.35-4.94)
[2018-01-16 20:42] LABS: BILIRUBIN,URINE NEGATIVE (NEGATIVE); CLARITY,URINE CLEAR; COLOR,URINE YELLOW; GLUCOSE, URINE (UA) NEGATIVE (NEGATIVE); KETONES,URINE NEGATIVE (NEGATIVE); LEUKOCYTE ESTERASE ,URINE NEGATIVE (NEGATIVE); NITRITE,URINE NEGATIVE (NEGATIVE); PH,URINE 7 (5-9); PROTEIN,URINE NEGATIVE (NEGATIVE); UROBILINOGEN,URINE NORMAL (NORMAL)
[2018-01-16 20:50] LABS: WBC,URINE RARE /HPF
[2018-01-16 21:01] LABS: AMPHETAMINE SCREEN, URINE NEGATIVE (NEGATIVE); BARBITURATE SCREEN URINE NEGATIVE (NEGATIVE); BENZODIAZEPINES SCREEN URINE NEGATIVE (NEGATIVE); CANNABINOID SCREEN, URINE NEGATIVE (NEGATIVE); COCAINE SCREEN URINE NEGATIVE (NEGATIVE); METHADONE STAT NEGATIVE (NEGATIVE); METHAMPHETAMINE SCREEN URINE S NEGATIVE (NEGATIVE); OPIATE SCREEN URINE POSITIVE (NEGATIVE); OXYCODONE STAT NEGATIVE (NEGATIVE); PROPOXYPHENE STAT NEGATIVE (NEGATIVE); TRICYCLIC ANTIDEPRESSANTS SCRE POSITIVE (NEGATIVE)
--- NOTE | 2018-01-16 21:20 | Diagnostic Imaging Report ---
PROCEDURE: CT chest, abdomen, and pelvis without contrast. TECHNIQUE: Multiple contiguous axial images were obtained through the chest, abdomen, and pelvis without the use of intravenous contrast. INDICATION: Chest and abdominal pain COMPARISON: CT abdomen 12/17/2017 CT chest: Heart is normal. There is no pericardial effusion. Central airways are normal. There is no lymphadenopathy. Lungs are clear throughout. No mass, nodule or infiltrate is seen. Osseous structures normal. IMPRESSION: Negative CT chest. CT abdomen and pelvis: Solid organs, gallbladder, vascular structures and bowel are stable. There is no interval change from the prior examination. Benign left renal cyst is again seen. There is no hydronephrosis. No free air or free fluid is identified. There is no lymphadenopathy. Distal ureters and urinary bladder are normal. The uterus is surgically absent. Osseous structures are age appropriate. IMPRESSION: Negative CT abdomen and pelvis. Dictated by: Dictated on workstation # [id number]
[2018-01-16 21:45] VITALS: BP 152/82
== END 2018-01-16 21:45 | disposition home or self-care (01) ==
LOC: ER 19:41
DX: R07.89 Other chest pain (principal); F41.9 Anxiety disorder, unspecified; J44.9 Chronic obstructive pulmonary disease, unspecified; E78.00 Pure hypercholesterolemia, unspecified; I10 Essential (primary) hypertension; E03.9 Hypothyroidism, unspecified; E11.9 Type 2 diabetes mellitus without complications; F20.9 Schizophrenia, unspecified; F32.9 Major depressive disorder, single episode, unspecified; Z80.8 Family history of malignant neoplasm of other organs or systems; Z82.49 Family history of ischemic heart disease and other diseases of the circulatory system; Z87.440 Personal history of urinary (tract) infections; Z91.19 Patient's noncompliance with other medical treatment and regimen; Z79.84 Long term (current) use of oral hypoglycemic drugs; Z96.653 Presence of artificial knee joint, bilateral; Z90.710 Acquired absence of both cervix and uterus; Z90.49 Acquired absence of other specified parts of digestive tract
CPT/HCPCS: 36415; 71045; 71250; 74176; 80053; 80306; 80320; 81000; 82150; 82550; 82553; 83690; 83735; 83880; 84443; 84484; 85025; 85610; 85730; 93005; 93041; 96374; 96375

== ENCOUNTER → 2018-02-26 | Outpatient (CLI) | payer MEDICAID ==
[~2018-02-26] MED LIST changes: +CATHETER FLUSH 10 ML SYR IV PRN; +CLON1TAB4 PO; +ESTR42.511; +FLUO40CA; +HYDR-3812; +LEVO25TA5; -QUET300T70 PO; +QUET300T71 PO; +REGADENOSON 0.4 MG/5 ML SYR (LEXISCAN) IV ONE; +TRAZ150T72
[2018-02-26 08:45] VITALS: BP 148/81
[2018-02-26 08:48] VITALS: BP 134/81
--- NOTE | 2018-03-05 14:57 | STRESS TEST ---
DATE OF SERVICE: 02/26/2018 RESTING AND POST REGADENOSON TECHNETIUM 99M TETROFOSMIN SPECT CT IMAGING ORDERING PHYSICIAN: Esther Anne APRN PRIMARY PHYSICIAN: Dr. Sanderson. CLINICAL DIAGNOSES: Chest discomfort, palpitations and diabetes. Baseline images were carried out after injection of 10.85 mCi of technetium-99m Tetrofosmin. This was followed by 0.4 mg regadenoson and 30.1 mCi technetium-99m Tetrofosmin for stress imaging. The electrocardiogram showed sinus rhythm with sinus arrhythmia throughout the study. There was subtle nonspecific ST abnormality during the study. The patient tolerated the procedure well and did not report symptoms. Review of images at rest and following stress does not indicate any significant perfusion defects consistent with any significant myocardial ischemia or infarction. Gated images showed normal global left ventricular systolic function with normal regional wall motion. Left ventricular ejection fraction is calculated to be 60%. Left ventricular end diastolic volume is 65 mL. TID is absent (1.18). CONCLUSIONS: 1. No evidence of any significant myocardial ischemia or infarction on this study. 2. Normal regional wall motion. 3. Normal global left ventricular systolic function with an ejection fraction of 60%. 4. Sinus rhythm with sinus arrhythmia during the study. Job ID: [id number] DocumentID: [id number] Dictated Date: 02/28/2018 09:56:50 Bb Shot Packer Date: 02/28/2018 13:49:53 Dictated By: SAMIR ADAMES MD, MA, FACP, FACC,
== END ==
LOC: CARD 07:31
PROVIDERS: ATTEND Nurse Practitioner Family
DX: R07.89 Other chest pain (principal); E11.9 Type 2 diabetes mellitus without complications; R00.2 Palpitations; E78.5 Hyperlipidemia, unspecified
CPT/HCPCS: 78452; 93017

== ENCOUNTER 2018-07-13 10:37 | Emergency (ER) | payer MEDICAID ==
[~2018-07-13] VITALS: Ht 154.9 cm; Wt 77.1 kg
[~2018-07-13 10:37] MED LIST changes: -CATHETER FLUSH 10 ML SYR IV PRN; +CLON1TAB13 PO; -CLON1TAB4 PO; +METF-399 PO; -METF10002 PO; -REGADENOSON 0.4 MG/5 ML SYR (LEXISCAN) IV ONE
[2018-07-13] MEDS ORDERED: HYDROcodone/APAP 10 MG/325 MG (LORTAB) TAB PO STA (10:42)
--- NOTE | 2018-07-13 11:05 | ED Lower Extremity ---
General Chief Complaint: Lower Extremity Stated Complaint: R LEG PAIN Source: patient Exam Limitations: no limitations (CASTRO PORTILLO MD) History of Present Illness Date Seen by Provider: Jul 13, 2018 Time Seen by Provider: 10:37 Initial Comments Here by EMS with report of right leg pain after inadvertently catching her leg on the door at the [employer]. Patient states that she was maneuvering with her wheelchair and got her foot caught. This caused her foot to turn outward on the right and has mid tib-fib pain as well as pain just above her knee. Does have multiple hip replacements to that side as well as femur pinning and fracture after that below the plan. Concerned that she may have caused problems with the prosthetics in the hip or knee on the right. Onset: just prior to arrival (30-45 minutes ago) Pain/Injury Location: right leg, right thigh Method of Injury: twisted Modifying Factors: Improves With Immobilization; Worse With Movement (CASTRO PORTILLO MD) Allergies and Home Medications Allergies Coded Allergies: No Known Drug Allergies (Verified , 09/19/17) Home Medications Brimonidine Tartrate 5 Ml Drops, 1 DROP OU BID, (Reported) Clonazepam 1 Mg Tablet, 1 MG PO BID, (Reported) Fluoxetine HCl 40 Mg Capsule, 40 MG PO DAILY, (Reported) Lisinopril 2.5 Mg Tablet, 2.5 MG PO DAILY, (Reported) Metformin HCl 1,000 Mg Tablet, 1,000 MG PO BID, (Reported) Trimethoprim 100 Mg Tablet, 100 MG PO DAILY, (Reported) Patient Home Medication List Home Medication List Reviewed: Yes (CASTRO PORTILLO MD) Review of Systems Constitutional: see HPI; No chills, No fever Respiratory: no symptoms reported Cardiovascular: no symptoms reported Musculoskeletal: see HPI, joint pain, muscle pain (CASTRO PORTILLO MD) Past Lvgzsld-Gelgdi-Oncmem Hx Past Med/Social Hx: Reviewed Nursing Past Med/Soc Hx (CASTRO PORTILLO MD) Patient Social History Alcohol Use: Denies Use Recreational Drug Use: No Smoking Status: Never a Smoker 2nd Hand Smoke Exposure: No Recent Hopitalizations: No (CASTRO PORTILLO MD) Immunizations Up To Date Tetanus Booster (TDap): More than 5yrs Date of Pneumonia Vaccine: May 27, 2012 Date of Influenza Vaccine: Apr 27, 2017 (CASTRO PORTILLO MD) Seasonal Allergies Seasonal Allergies: No (CASTRO PORTILLO MD) Past Medical History Surgeries: Yes Appendectomy, Bladder Surgery, Hysterectomy, Orthopedic Respiratory: Yes COPD Cardiac: Yes High Cholesterol, Hypertension Neurological: Yes Neuropathy Reproductive Disorders: No 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, 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 Sexually Transmitted Disease: No HIV/AIDS: No Genitourinary: Yes Renal Failure, UTI-Chronic Gastrointestinal: Yes (S/P CHOLECYSTECTOMY) Chronic Diarrhea, Polyps, Gall Bladder Disease Musculoskeletal: Yes Degenerate Disk Disease, Arthritis, Chronic Back Pain, Fractures Endocrine: Yes Hypothyroidsim, Diabetes, Non-Insulin dep HEENT: Yes Glaucoma Cancer: No Psychosocial: Yes (EXTENSIVE PSYCH ISSUES) Anxiety, Schizophrenia, Depression Integumentary: No Blood Disorders: Yes (ANEMIA) (CASTRO PORTILLO MD) Family Medical History Reviewed Nursing Family Hx (CASTRO PORTILLO MD) Bone cancer SON FH: COPD (chronic obstructive pulmonary disease) 19 MOTHER FH: congestive heart failure 19 MOTHER FH: depression 19 FATHER FH: schizophrenia 19 FATHER No Pertinent Family Hx (CASTRO PORTILLO MD) Physical Exam Vital Signs Vital Signs - First Documented 07/13/18 10:37 Temp 98.0 Pulse 73 Resp 16 B/P (MAP) 141/79 (99) Pulse Ox 100 (BERNOT,VENANCIO) Vital Signs Capillary Refill : (CASTRO PORTILLO MD) Height, Weight, BMI Height: 5'1.00" Weight: 168lbs. 0.0oz. 76.469824lm; 35.1 BMI Method:Stated General Appearance: WD/WN, mild distress HEENT: PERRL/EOMI, pharynx normal Neck: non-tender, full range of motion, supple Cardiovascular: regular rate, rhythm, no murmur Respiratory: lungs clear, normal breath sounds Gastrointestinal: non tender, soft Back: normal inspection, no CVA tenderness, no vertebral tenderness Hips: bilateral hip non-tender, bilateral hip normal inspection Legs: left leg non-tender, left leg normal inspection; right leg other (pain to the mid right femur area. Also has pain to the mid tib-fib area on the right. No obvious deformity.) Knees: left knee non-tender, left knee normal inspection; right knee other ( mild tenderness above and below the knee joint) Neurologic/Psychiatric: alert, oriented x 3 Skin: normal color, warm/dry (CASTRO PORTILLO MD) Procedures/Interventions Splinting and Joint Reduction : Pre-Proc Neuro Vasc Exam: normal Post-Proc Neuro Vasc Exam: normal (CASTRO PORTILLO MD) Splinting and Joint Reduction : Hand-Made Type: orthoglass Splint Application: Long Leg (posterior long leg and sugar tong placed on right leg. Remains neurovascularly intact. Distal pulses present after spint application.) (VENANCIO ROSAS) Progress/Results/Core Measures Results/Orders Lab Results Laboratory Tests Test 07/13/18 11:27 Range/Units White Blood Count 3.4 L 4.3-11.0 10^3/uL Red Blood Count 3.38 L 4.35-5.85 10^6/uL Hemoglobin 10.9 L 11.5-16.0 G/DL Hematocrit 32 L 35-52 % Mean Corpuscular Volume 94 80-99 FL Mean Corpuscular Hemoglobin 32 25-34 PG Mean Corpuscular Hemoglobin Concent 34 32-36 G/DL Red Cell Distribution Width 12.6 10.0-14.5 % Platelet Count 231 130-400 10^3/uL Mean Platelet Volume 9.3 7.4-10.4 FL Neutrophils (%) (Auto) 68 42-75 % Lymphocytes (%) (Auto) 23 12-44 % Monocytes (%) (Auto) 9 0-12 % Eosinophils (%) (Auto) 0 0-10 % Basophils (%) (Auto) 0 0-10 % Neutrophils # (Auto) 2.3 1.8-7.8 X 10^3 Lymphocytes # (Auto) 0.8 L 1.0-4.0 X 10^3 Monocytes # (Auto) 0.3 0.0-1.0 X 10^3 Eosinophils # (Auto) 0.0 0.0-0.3 10^3/uL Basophils # (Auto) 0.0 0.0-0.1 10^3/uL (VENANCIO ROSAS) Vital Signs/I&O 07/13/18 10:37 Temp 98.0 Pulse 73 Resp 16 B/P (MAP) 141/79 (99) Pulse Ox 100 (VENANCIO ROSAS) Progress Progress Note : Progress Note Seen and evaluated. Hydrocodone 10/325 one tab by mouth given. X-ray right tib -fib and femur. 1145: X-ray shows a proximal fibular fracture as well as mid shaft tib-fib fracture on the right with fracture line through distal prosthetic area on the tibia. There is no ortho coverage available here today. We will place posterior and sugar tong style splint to the right lower leg. Patient will need transfer. I did discuss this with patient. We will attempt transfer to [facility] in [place], [place]. IV established and fentanyl 75 g IV ordered for pain. Last last meal noted to be at 730 this morning when she had a couple coffee with cream but has not eaten or drank since. 1215: I discussed the case with [facility] in [facility], Dr. Landaverde. They do not have total joint orthopedist on-call this weekend and would require her to be transferred to another facility due to concerns about the fracture involving the prosthetic of the right knee. We will try [facility] in [facility]. They have been called and impending call back. 1305: I did discuss the case with Dr. ren at [facility] in [place], [place]. Unfortunately they do not have anybody that can manage the prosthesis if it is loose and is recommending transfer to higher level of care. 1311: I initiated contact with [facility] and information is being discussed with the orthopedist disease control inspector. We have clouded the films to them as well as faxed the report per their request. Patient informed and updated and agrees with the plan to this point. She is hurting again. 75 g of fentanyl IV ordered and we will initiate normal saline at 125 mL an hour due to her nothing by mouth status. 1355: [facility] has accepted the patient for transfer with Dr. Akhtar accepting. Pending bed assignment. 1425: Bed assignment received. Patient to be transferred via EMS. Patient is in agreement with plan. 1520: EMS transferring patient now. Repeat 75 g of fentanyl given for pain. Report given to EMS by me. (CASTRO PORTILLO MD) Diagnostic Imaging Diagonstic Imaging: Xray Plain Films/CT/US/NM/MRI: femur Comments NAME: KELLEEAZAEL R MED REC#: [id number] PT STATUS: REG ER : 1960 PHYSICIAN: CASTRO PORTILLO MD ADMIT DATE: 07/13/18/ER Signed Date of Exam: 07/13/18 FEMUR, RIGHT, 2 VIEWS INDICATION: Right leg trauma, pain, history of fracture. COMPARISON: 11/25/2017. FINDINGS: Multiple views of the right femur demonstrate ORIF of the right hip, right knee arthroplasty and orthopedic plate and screw placement across a chronic mid to distal femur fracture. There is no acute fracture or dislocation. Articular surfaces are stable. IMPRESSION: Stable ORIF of the right femur. No acute fracture identified. Dictated by: Dictated on workstation # [id number] Dict: 07/13/18 1130 Trans: 07/13/18 1134 Interpreted by: KAR MATHIS Electronically signed by: KAR MATHIS 07/13/18 1134 Reviewed: Reviewed by Me Diagonstic Imaging: Xray Plain Films/CT/US/NM/MRI: other Comments NAME: AZAEL GOODSON [facility] REC#: [id number] PT STATUS: REG ER : 1960 PHYSICIAN: CASTRO PORTILLO MD ADMIT DATE: 07/13/18/ER Signed Date of Exam: 07/13/18 TIBIA/FIBULA, RIGHT, 2 VIEWS EXAMINATION: Right tibia and fibula, 2 views, 4 images. COMPARISON: None. HISTORY: 58-year-old female, injury. Right tibia and fibula pain. FINDINGS: There is a partially visualized hinged right knee prosthesis. The hardware appears intact. There is a mildly displaced obliquely oriented fracture of the proximal fibula with the distal fracture fragment being displaced posteriorly by approximately 5 mm. There is a mildly comminuted oblique fracture of the tibial diaphysis extending from the level of the lower aspect of the tibial component of the knee prosthesis. Fracture displacement in anterior to posterior direction measures approximately 5.8 mm at this site. Obliquity of imaging significantly limits evaluation at the level of the distal tibia and fibula, particularly on the lateral view. There is no obvious additional fracture identified at the level of the distal tibia or fibula. IMPRESSION: 1. Mildly displaced fracture of the proximal fibular diaphysis. 2. Mildly comminuted mildly displaced fracture of the tibial diaphysis extending inferiorly from the level of the lower aspect of the tibial component of the hinged right knee prosthesis. 3. Limited assessment at the level of the distal tibia and fibula without obvious additional fracture at this site. Dictated by: Dictated on workstation # [id number] Dict: 07/13/18 1130 Trans: 07/13/18 1146 Interpreted by: RUBEN OLIVER MD Electronically signed by: RUBEN OLIVER MD 07/13/18 1146 Reviewed: Reviewed by Me (CASTRO PORTILLO MD) Departure Impression Primary Impression: Fracture of tibia and fibula Qualified Codes: S82.201A - Unspecified fracture of shaft of right tibia, initial encounter for closed fracture; S82.401A - Unspecified fracture of shaft of right fibula, initial encounter for closed fracture Disposition: 02 XFER SHT-TRM HOSP Condition: Stable Transfer Time Spoke to Accepting Phy: 13:55 Transfer Time: 14:25 Transfer Facility: [place], [place], Dr. Akhtar accepting. Method of Transfer: EMS (CASTRO PORTILLO MD) Departure-Patient Inst. Referrals: KAMI SEAMAN MD (PCP) Primary Care Physician CASTRO PORTILLO MD Jul 13, 2018 11:05 VENANCIO ROSAS Jul 13, 2018 11:55
[2018-07-13] MEDS ORDERED: fentaNYL INJECTION 100 MCG/2 ML AMP IVP STA ×3 (11:33→15:08)
--- NOTE | 2018-07-13 11:36 | Diagnostic Imaging Report ---
INDICATION: Right leg trauma, pain, history of fracture. COMPARISON: 11/25/2017. FINDINGS: Multiple views of the right femur demonstrate ORIF of the right hip, right knee arthroplasty and orthopedic plate and screw placement across a chronic mid to distal femur fracture. There is no acute fracture or dislocation. Articular surfaces are stable. IMPRESSION: Stable ORIF of the right femur. No acute fracture identified. Dictated by: Dictated on workstation # [id number]
[2018-07-13] MEDS ORDERED: fentaNYL INJECTION 100 MCG/2 ML AMP ONE (11:37)
[2018-07-13 11:42] LABS: BASOPHILS % (AUTO) 0 % (0-10); EOSINOPHILS % (AUTO) 0 % (0-10); HEMATOCRIT 32 % (35-52); HEMOGLOBIN 10.9 G/DL (11.5-16.0); LYMPHOCYTES # (AUTO) 0.8 X 10^3 (1.0-4.0); LYMPHOCYTES % (AUTO) 23 % (12-44); MEAN CORPUSCULAR HEMOGLOBIN 32 PG (25-34); MEAN CORPUSCULAR HGB CONC 34 G/DL (32-36); MEAN CORPUSCULAR VOLUME 94 FL (80-99); MEAN PLATELET VOLUME 9.3 FL (7.4-10.4); MONOCYTES # (AUTO) 0.3 X 10^3 (0.0-1.0); MONOCYTES % (AUTO) 9 % (0-12); NEUTROPHILS # (AUTO) 2.3 X 10^3 (1.8-7.8); NEUTROPHILS % (AUTO) 68 % (42-75); PLATELET COUNT 231 10^3/uL (130-400); RED BLOOD COUNT 3.38 10^6/uL (4.35-5.85); RED CELL DISTRIBUTION WIDTH 12.6 % (10.0-14.5); WHITE BLOOD COUNT 3.4 10^3/uL (4.3-11.0)
--- NOTE | 2018-07-13 11:44 | Diagnostic Imaging Report ---
EXAMINATION: Right tibia and fibula, 2 views, 4 images. COMPARISON: None. HISTORY: 58-year-old female, injury. Right tibia and fibula pain. FINDINGS: There is a partially visualized hinged right knee prosthesis. The hardware appears intact. There is a mildly displaced obliquely oriented fracture of the proximal fibula with the distal fracture fragment being displaced posteriorly by approximately 5 mm. There is a mildly comminuted oblique fracture of the tibial diaphysis extending from the level of the lower aspect of the tibial component of the knee prosthesis. Fracture displacement in anterior to posterior direction measures approximately 5.8 mm at this site. Obliquity of imaging significantly limits evaluation at the level of the distal tibia and fibula, particularly on the lateral view. There is no obvious additional fracture identified at the level of the distal tibia or fibula. IMPRESSION: 1. Mildly displaced fracture of the proximal fibular diaphysis. 2. Mildly comminuted mildly displaced fracture of the tibial diaphysis extending inferiorly from the level of the lower aspect of the tibial component of the hinged right knee prosthesis. 3. Limited assessment at the level of the distal tibia and fibula without obvious additional fracture at this site. Dictated by: Dictated on workstation # [id number]
[2018-07-13 11:55] LABS: ALBUMIN 4.3 GM/DL (3.2-4.5); BILIRUBIN,TOTAL 0.3 MG/DL (0.1-1.0); CALCIUM 9.6 MG/DL (8.5-10.1); CREATININE SERUM 1.38 MG/DL (0.60-1.30); POTASSIUM 4.7 MMOL/L (3.6-5.0); TOTAL PROTEIN 6.8 GM/DL (6.4-8.2)
[2018-07-13] MEDS ORDERED: NS IV 1000 ML 1,000 ML IV ONE (13:13)
[2018-07-13 15:20] VITALS: BP 131/76
== END 2018-07-13 15:20 | disposition short-term general hospital (02) ==
LOC: EDUNIT# 10:37 → ER 10:41
DX: S89.201A Unspecified physeal fracture of upper end of right fibula, initial encounter for closed fracture (principal); S82.191A Other fracture of upper end of right tibia, initial encounter for closed fracture; J44.9 Chronic obstructive pulmonary disease, unspecified; E78.00 Pure hypercholesterolemia, unspecified; E03.9 Hypothyroidism, unspecified; E11.9 Type 2 diabetes mellitus without complications; F41.9 Anxiety disorder, unspecified; F20.9 Schizophrenia, unspecified; F32.9 Major depressive disorder, single episode, unspecified; D64.9 Anemia, unspecified; I10 Essential (primary) hypertension; Z86.010 Personal history of colon polyps; Z87.19 Personal history of other diseases of the digestive system; Z87.440 Personal history of urinary (tract) infections; Z82.49 Family history of ischemic heart disease and other diseases of the circulatory system; Z80.8 Family history of malignant neoplasm of other organs or systems; Z79.84 Long term (current) use of oral hypoglycemic drugs; Z96.641 Presence of right artificial hip joint; Z90.710 Acquired absence of both cervix and uterus; Z90.49 Acquired absence of other specified parts of digestive tract; X50.1XXA Overexertion from prolonged static or awkward postures, initial encounter; Y92.512 Supermarket, store or market as the place of occurrence of the external cause
CPT/HCPCS: 29505; 36415; 73552; 73590; 80053; 85025

== ENCOUNTER 2018-08-21 16:14 | Emergency (ER) | payer MEDICAID ==
[~2018-08-21] VITALS: Ht 154.9 cm; Wt 61.2 kg
--- NOTE | 2018-08-21 17:41 | Diagnostic Imaging Report ---
INDICATION: Pain COMPARISON: 01/16/2018 TECHNIQUE: 3 radiographs of the right-sided ribs dated 08/21/2018 FINDINGS: No large pleural effusion or pneumothorax. No displaced or healing rib fracture. No suspicious radiopaque foreign body. IMPRESSION: 1. No displaced or healing right-sided rib fracture. 2. No significant pleural effusion or pneumothorax. Dictated by: Dictated on workstation # [id number]
--- NOTE | 2018-08-21 18:14 | ED General ---
General Chief Complaint: Chest Wall/Rib Pain Stated Complaint: RIB PAIN Nursing Triage Note: TO ED PER EMS C/O R RIB PAIN. FOR SEVERAL DAYS HAS LONG LEG CAST ON R LEG. HAS BEEN OUT OF PAIN MEDS FOR SEVERAL DAYS. Nursing Sepsis Screen: No Definite Risk Source of Information: Patient Exam Limitations: No Limitations History of Present Illness Date Seen by Provider: Aug 21, 2018 Time Seen by Provider: 16:40 Initial Comments The patient is a 58 year old female who was brought to the emergency room by [facility] ems with complains of right sided rib pain for 1 week. She has a lone leg cast on the right leg for fractures and has been having to pull her self up due to not being able to bare weight due to the leg. She believes that she has pulled a muscle in that area. 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 Denies blunt forced trauma to the area. VSS on arrival to the exam room. EMS reports that she was recently on Oxycodone for the leg fracture but [facility] did not refill her script on her last visit because she is also prescribed hydrocodone for chronic pain by her PCP but she also run out of her hydrocodone early and they will not be refilled until the September 05. Timing/Duration: 1 Week Modifying Factors: improves with Medication (narcotics ) Associated Systoms: Denies Symptoms Allergies and Home Medications Allergies Coded Allergies: No Known Drug Allergies (Verified , 09/19/17) Home Medications Brimonidine Tartrate 5 Ml Drops, 1 DROP OU BID, (Reported) Clonazepam 1 Mg Tablet, 1 MG PO BID, (Reported) Cyclobenzaprine HCl 10 Mg Tablet, 10 MG PO Q8H Prescribed by: VENANCIO ROSAS on 08/21/181814 Fluoxetine HCl 40 Mg Capsule, 40 MG PO DAILY, (Reported) Lisinopril 2.5 Mg Tablet, 2.5 MG PO DAILY, (Reported) Metformin HCl 1,000 Mg Tablet, 1,000 MG PO BID, (Reported) Trimethoprim 100 Mg Tablet, 100 MG PO DAILY, (Reported) Patient Home Medication List Home Medication List Reviewed: Yes Review of Systems Review of Systems Constitutional: no symptoms reported, see HPI Respiratory: see HPI, other (right sided chest wall pain ) All Other Systems Reviewed Negative Unless Noted: Yes Past Tkpgtfc-Cahlfh-Fkuowm Hx Past Med/Social Hx: Reviewed Nursing Past Med/Soc Hx Patient Social History Alcohol Use: Denies Use Recreational Drug Use: No Smoking Status: Never a Smoker 2nd Hand Smoke Exposure: No Recent Foreign Travel: No Contact w/Someone Who Travel: No Recent Infectious Disease Expo: No Recent Hopitalizations: No Immunizations Up To Date Tetanus Booster (TDap): More than 5yrs Date of Pneumonia Vaccine: May 27, 2012 Date of Influenza Vaccine: Apr 27, 2017 Seasonal Allergies Seasonal Allergies: No Past Medical History Surgeries: Yes Appendectomy, Bladder Surgery, Hysterectomy, Orthopedic Respiratory: Yes COPD Cardiac: Yes High Cholesterol, Hypertension Neurological: Yes Neuropathy Reproductive Disorders: No 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, 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 Sexually Transmitted Disease: No HIV/AIDS: No Genitourinary: Yes Renal Failure, UTI-Chronic Gastrointestinal: Yes (S/P CHOLECYSTECTOMY) Chronic Diarrhea, Polyps, Gall Bladder Disease Musculoskeletal: Yes Degenerate Disk Disease, Arthritis, Chronic Back Pain, Fractures Endocrine: Yes Hypothyroidsim, Diabetes, Non-Insulin dep HEENT: Yes Glaucoma Cancer: No Psychosocial: Yes (EXTENSIVE PSYCH ISSUES) Anxiety, Schizophrenia, Depression Integumentary: No Blood Disorders: Yes (ANEMIA) Family Medical History Reviewed Nursing Family Hx Bone cancer SON FH: COPD (chronic obstructive pulmonary disease) 19 MOTHER FH: congestive heart failure 19 MOTHER FH: depression 19 FATHER FH: schizophrenia 19 FATHER No Pertinent Family Hx Physical Exam Vital Signs Vital Signs - First Documented 08/21/18 16:39 Temp 97.0 Pulse 70 Resp 18 B/P (MAP) 166/ O2 Delivery Room Air Capillary Refill : Less Than 3 Seconds Height, Weight, BMI Height: 5'1.00" Weight: 135lbs. 0.0oz. 61.812605pe; 35.1 BMI Method:Stated General Appearance: No Apparent Distress, WD/WN Eyes: Bilateral Eye Normal Inspection, Bilateral Eye PERRL, Bilateral Eye EOMI HEENT: PERRL/EOMI, TMs Normal, Normal ENT Inspection, Pharynx Normal Neck: Full Range of Motion, Normal Inspection, Non Tender, Supple, Carotid Bruit Respiratory: Lungs Clear, Normal Breath Sounds, No Accessory Muscle Use, No Respiratory Distress, Other Cardiovascular: Regular Rate, Rhythm, No Edema, No Gallop, No JVD, No Murmur, Normal Peripheral Pulses Gastrointestinal: Normal Bowel Sounds, No Organomegaly, No Pulsatile Mass, Non Tender, Soft Extremity: Normal Capillary Refill, No Pedal Edema, Other Neurologic/Psychiatric: Alert, Oriented x3, Normal Mood/Affect Skin: Normal Color, Warm/Dry Progress/Results/Core Measures Suspected Sepsis Recent Fever Within 48 Hours: No Infection Criteria Present: None New/Unexplained Altered Menta: No Sepsis Screen: No Definite Risk SIRS Temperature:97.0 Pulse: 70 Respiratory Rate: 18 Blood Pressure 166 / Mean: Results/Orders My Orders Orders - VENANCIO ROSAS Ribs, Right 2-3 Views (08/21/18 16:49) Cyclobenzaprine Tablet (Flexeril Tablet) (08/21/18 19:46) Hydrocodone/Apap 5/325 Tablet (Lortab 5 (08/21/18 20:45) Medications Given in ED Current Medications Medications Dose Ordered Sig/Salvador Route Start Time Stop Time Status Last Admin Dose Admin Acetaminophen/ Hydrocodone Bitart 1 tab ONCE ONCE PO 08/21/18 20:45 08/21/18 20:46 DC 08/21/18 20:43 1 TAB Vital Signs/I&O 08/21/18 16:39 Temp 97.0 Pulse 70 Resp 18 B/P (MAP) 166/ O2 Delivery Room Air Capillary Refill : Less Than 3 Seconds Progress Note : Time: 18:05 Progress Note I have seen and evaluated the patient. I have informed her of imaging studies, I will be prescribing muscles relaxers for pain relief. She requests additional pain medications but I told her I would not be refilling her prescriptions and she became angry at this. I informed her that I will be giving her a one time does of pain medications prior to discharge. She is attempting to make transportation arrangements. 2000: She was unable to make arrangements for transportation. She attempted to call 911 from her room for EMS to take her back home. 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 EMS wound not transfer the patient back, [facility] was called for transportation back to the [facility] residents. Diagnostic Imaging Diagonstic Imaging: Xray Plain Films/CT/US/NM/MRI: other Comments NAME: AZAEL GOODSON [facility] REC#: [id number] PHYSICIAN: VENANCIO ROSAS CC: VENANCIO ROSAS; KARIN VIERA MD Page 1 of 1 RADIOLOGY REPORT [facility] [place] CC: VENANCIO ROSAS; KARIN VIERA MD Page 1 of 1 RADIOLOGY REPORT NAME: AZAEL GOODSON [facility] REC#: [id number] PT STATUS: REG ER : 1960 PHYSICIAN: VENANCIO ROSAS ADMIT DATE: 08/21/18/ER Signed Date of Exam: 08/21/18 RIBS, RIGHT 2-3 VIEWS INDICATION: Pain COMPARISON: 01/16/2018 TECHNIQUE: 3 radiographs of the right-sided ribs dated 08/21/2018 FINDINGS: No large pleural effusion or pneumothorax. No displaced or healing rib fracture. No suspicious radiopaque foreign body. IMPRESSION: 1. No displaced or healing right-sided rib fracture. 2. No significant pleural effusion or pneumothorax. Dictated by: Dictated on workstation # [id number] Dict: 08/21/181734 Trans: 08/21/181758 Interpreted by: KARIN VIERA MD Electronically signed by: KARIN VIERA MD 08/21/181758 Reviewed: Reviewed by Nd Departure Impression Primary Impression: Chest wall muscle strain Disposition: 01 HOME, SELF-CARE Condition: Stable/Unchanged Departure-Patient Inst. Decision time for Depature: 18:05 Referrals: NAI JAIME MD (PCP/Family) Primary Care Physician Patient Instructions: Muscle Strain (DC) Add. Discharge Instructions: Take medication as directed. You may alternate ice and warm heat to the sore areas at 20 minute intervals. Tylenol and ibuprofen as needed for pain relief. Follow-up with her primary care provider within 1 week for recheck. Return back to the emergency room for any worsening symptoms or concerns as needed. All discharge instructions reviewed with patient and/or family. Voiced understanding. Scripts Cyclobenzaprine HCl (Cyclobenzaprine HCl) 10 Mg Tablet 10 MG PO Q8H, #14 TAB Prov: VENANCIO ROSAS 08/21/18 VENANCIO ROASS Aug 21, 2018 18:14
[2018-08-21] MEDS ORDERED: CYCL10TA9 PO (18:15)
[2018-08-21] MEDS ORDERED: CYCLOBENZAPRINE 10 MG (FLEXERIL) TAB PO SCH (18:45)
[2018-08-21] MEDS ORDERED: CYCLOBENZAPRINE 10 MG (FLEXERIL) TAB PO STA (19:46)
[2018-08-21] MEDS ORDERED: HYDROcodone/APAP 5 MG/325 MG (LORTAB) TAB PO ONE (20:45)
[2018-08-21 20:56] VITALS: BP 166/85
== END 2018-08-21 20:56 | disposition home or self-care (01) ==
LOC: EDUNIT# 16:14 → ER 16:16
DX: S29.011A Strain of muscle and tendon of front wall of thorax, initial encounter (principal); J44.9 Chronic obstructive pulmonary disease, unspecified; E78.00 Pure hypercholesterolemia, unspecified; I10 Essential (primary) hypertension; E11.40 Type 2 diabetes mellitus with diabetic neuropathy, unspecified; E03.9 Hypothyroidism, unspecified; F41.9 Anxiety disorder, unspecified; F20.9 Schizophrenia, unspecified; F32.9 Major depressive disorder, single episode, unspecified; Z90.49 Acquired absence of other specified parts of digestive tract; Z87.19 Personal history of other diseases of the digestive system; Z80.8 Family history of malignant neoplasm of other organs or systems; Z82.49 Family history of ischemic heart disease and other diseases of the circulatory system; Z86.010 Personal history of colon polyps; Z87.448 Personal history of other diseases of urinary system; Z87.440 Personal history of urinary (tract) infections; Z79.84 Long term (current) use of oral hypoglycemic drugs; Z90.89 Acquired absence of other organs; Z90.710 Acquired absence of both cervix and uterus; X58.XXXA Exposure to other specified factors, initial encounter
CPT/HCPCS: 71100

== ENCOUNTER 2019-05-26 10:43 | Outpatient (RCR) | payer MEDICAID ==
[~2019-05-26 10:43] MED LIST changes: +CYAN-41 PO; -CYAN10006 PO; +CYCL10TA9 PO
== END 2019-07-09 | disposition home or self-care (01) ==
PROVIDERS: ATTEND Family Medicine
DX: M25.561 Pain in right knee (principal); M25.562 Pain in left knee

== ENCOUNTER 2021-05-12 06:57 | Outpatient (RCR) | payer MEDICAID ==
[~2021-05-12] VITALS: Ht 155 cm; Wt 83.5 kg
[~2021-05-12 06:57] MED LIST changes: +ACHD5005; -HYDR-3812; -LISI2.5T PO; +LISI2.5T13 PO
[2021-05-18] MEDS ORDERED: LISI10TA25 PO (10:05)
[2021-05-18] MEDS ORDERED: ATOR40TA70 PO (10:05)
[2021-05-18] MEDS ORDERED: QUET300T71 PO (10:05)
[2021-05-18] MEDS ORDERED: LATA7.5D OP (10:06)
== END 2021-05-23 10:34 | disposition home or self-care (01) ==
LOC: PREOP 06:57
PROVIDERS: ATTEND Surgery
DX: Z01.818 Encounter for other preprocedural examination (principal)

== ENCOUNTER 2021-05-23 08:14 | Day surgery (SDC) | payer MEDICAID ==
[~2021-05-23] VITALS: Ht 155 cm; Wt 83.5 kg
[~2021-05-23 08:14] MED LIST changes: +LATA7.5D OP; +LISI10TA25 PO
[2021-05-23 08:20] VITALS: BP 132/82
[2021-05-23] MEDS ORDERED: LACTATED RINGERS 1,000 ML IV STA (08:22)
[2021-05-23] MEDS ORDERED: LACTATED RINGERS 1,000 ML IV ONE (08:22)
[2021-05-23] MEDS ORDERED: HURRICAINE EXT TUBE (BENZOCAINE) XX PRN (08:30)
--- NOTE | 2021-05-23 09:14 | Progress Note-Pre Operative ---
Pre-Operative Progress Note H&P Reviewed The H&P was reviewed, patient examined and no changes noted. Time Seen by Provider: 09:13 Date H&P Reviewed: May 23, 2021 Time H&P Reviewed: 09:13 Pre-Operative Diagnosis: N/V, heartburn VANDANA WHITE DO May 23, 2021 09:14
[2021-05-23] MEDS ORDERED: PROPOFOL INJECTION 50 ML IV ONE (09:50)
[2021-05-23 10:05] VITALS: BP 137/74
[2021-05-23 10:10] VITALS: BP 128/67
--- NOTE | 2021-05-23 10:11 | Progress Note-Post Operative ---
Post-Operative Progess Note Surgeon (s)/Solution Make Up Operator (s) Surgeon VANDANA WHITE DO Solution Make Up Operator: none Pre-Operative Diagnosis N/V, heartburn Post-Operative Diagnosis Gastritis Esophagitis Hiatal hernia Procedure & Operative Findings Date of Procedure 05/23/21 Procedure Performed/Findings EGD with biopsy PROCEDURE NOTE: After informed consent was obtained, the patient was brought to the endoscopy suite, placed in bed in left lateral decubitus position. She was administered IV sedation by the BOAT CARPENTER who then monitored vitals the entire time, heart rate, blood pressure and pulse ox and the scope was inserted down the mouth through the esophagus into the stomach. On the way down, noted some bile in the esophagus; upper and mid portions. As well noted some mild esophagitis and took a picture. Then pushed into the stomach and noted some gastritis; pushed past the antrum into the duodenum; duodenum looked good. Pulled back and did a biopsy of antrum. Then retroflexed the scope and saw a small hiatal hernia, took a picture of this and then pulled the scope into the GE junction, took another picture of the hiatal hernia and then did a biopsy of the GE junction (times 2). Pushed the scope back into the stomach, suctioned all the air out of the stomach. At this point pulled the scope up the esophagus and out the mouth. The patient tolerated the procedure, and she recovered in endoscopy suite. Anesthesia Type IV sedation by BOAT CARPENTER Estimated Blood Loss Estimated blood loss (mL): scant Specimens/Packing Specimens Removed antral bx body of stomach bx GE jxn x 2 VANDANA WHITE DO May 23, 2021 10:11
--- NOTE | 2021-05-23 10:12 | Endoscopy Discharge Instruct ---
Endo Procedure/Findings Findings 1.: Gastritis 2.: Hiatal Hernia 3.: Other Findings (Esophagitis) Discharge Instructions - Activity: You might feel a little sleepy until tomorrow. This is due to the medicine you received to relax you. Until tomorrow, you should: NOT drive a car, operate machinery or power tools. NOT drink any alcoholic beverages. NOT make any important decisions or sign importortant papers. Do not return to work until tomorrow, unless otherwise instructed. Resume previous activities tomorrow. Diet: Start by taking liquids. If you tolerate liquids, advance to solid food. 1.: EGD in 1 year Notify Physician - If you experience excessive bleeding, unusual abdominal pain, fever, or chest pain, contact your doctor immediately. VANDANA WHITE DO May 23, 2021 10:12
[2021-05-23 10:15] VITALS: BP 130/57
[2021-05-23 10:20] VITALS: BP 130/57
[2021-05-23 10:44] VITALS: BP 129/70
--- NOTE | 2021-05-23 12:38 | Anesthesia-General Post-Op ---
MAC Patient Condition Mental Status/LOC: Same as Preop Cardiovascular: Satisfactory Nausea/Vomiting: Absent Respiratory: Satisfactory Pain: Controlled Complications: Absent Post Op Complications Complications None Follow Up Care/Instructions Patient Instructions None needed. Anesthesiology Discharge Order Discharge Order Patient is doing well, no complaints, stable vital signs, no apparent adverse anesthesia problems. No complications reported per nursing. PABLITO ROE CRNA May 23, 2021 12:38
== END 2021-05-23 11:55 | disposition home or self-care (01) ==
LOC: ENDO 08:14
PROVIDERS: ATTEND Surgery
DX: K29.70 Gastritis, unspecified, without bleeding (principal); K20.90 Esophagitis, unspecified without bleeding; K44.9 Diaphragmatic hernia without obstruction or gangrene; K31.89 Other diseases of stomach and duodenum; I10 Essential (primary) hypertension; E11.9 Type 2 diabetes mellitus without complications; E07.9 Disorder of thyroid, unspecified; E78.00 Pure hypercholesterolemia, unspecified; E78.5 Hyperlipidemia, unspecified; F41.9 Anxiety disorder, unspecified; F20.9 Schizophrenia, unspecified; F32.9 Major depressive disorder, single episode, unspecified; D57.1 Sickle-cell disease without crisis; Z86.010 Personal history of colon polyps; Z79.890 Hormone replacement therapy; Z79.84 Long term (current) use of oral hypoglycemic drugs; Z79.899 Other long term (current) drug therapy
CPT/HCPCS: 82947

== ENCOUNTER → 2021-09-09 | Outpatient (CLI) | payer MEDICAID ==
[~2021-09-09] MED LIST changes: +CATHETER FLUSH 10 ML SYR IV PRN; +CYCL10TA25 PO; -CYCL10TA9 PO
--- NOTE | 2021-09-09 16:30 | Diagnostic Imaging Report ---
INDICATION: Vomiting. TECHNIQUE: Nuclear hepatobiliary study performed in the routine fashion with IV injection of 5.15 mCi of technetium-99m labeled Choletec. FINDINGS: There is prompt uptake of the tracer by the liver. Tracer is visualized in the biliary tree within 10 minutes. Tracer is visualized in the gallbladder within about 40-45 minutes. Tracer is seen in the small bowel within 25 minutes. Patient was then given 8 ounces of Ensure orally. The gallbladder ejection fraction was calculated. Calculated gallbladder EF was 54%. IMPRESSION: Normal nuclear hepatobiliary study with normal gallbladder ejection fraction. Dictated by: Dictated on workstation # [id number]
== END ==
LOC: CARD 12:00
PROVIDERS: ATTEND Family Medicine
DX: K21.9 Gastro-esophageal reflux disease without esophagitis (principal); R11.10 Vomiting, unspecified
CPT/HCPCS: 78227; A9537